=== PATIENT | female | born 1930 | race Caucasian/White ===

== ENCOUNTER 2016-04-12 14:53 | Emergency (ER) | payer MEDICARE ==
[2016-04-12 16:19] LABS: Hematocrit 40 % (35-47); Hemoglobin 13.2 g/dl (12.0-16.0); Mean Corpuscular HGB Conc 33 g/dl (31-36); Mean Corpuscular Hemoglobin 30 pg (27-31); Mean Corpuscular Volume 90 fL (80-97); Mean Platelet Volume 8 um3 (7.4-10.4); Red Blood Count 4.46 10^6/ul (4.0-5.4); Red Cell Distribution Width 14 % (10.5-15); White Blood Count 7.2 10^3/ul (3.5-10.8)
--- NOTE | 2016-04-12 16:21 | RAD ---
INDICATION: Midsternal chest pain for 5 minutes. Pain free for 20 minutes. Arrhythmia. COMPARISON: October 22, 2015 chest radiograph and August 01, [address] TECHNIQUE: Dual energy PA chest obtained. REPORT: Moderate retrocardiac hiatal hernia without change. Mild cardiomegaly. RIGHT atrial and RIGHT ventricular level pacemaker leads. LEFT chest wall pacemaker control device partially obscures the LEFT lung. No pulmonary infiltrate, focal pulmonary lesion, pleural effusion, or pneumothorax. IMPRESSION: No acute cardiopulmonary process evident.
[2016-04-12 16:35] LABS: BUN/Creatinine Ratio 19.7 (8-20); Calcium 9.8 mg/dL (8.6-10.3); EGFR African American 51.4 (>60); Potassium 3.7 mmol/L (3.5-5.0)
[2016-04-12 20:02] VITALS: BP 110/60
--- NOTE | 2016-04-12 20:08 | ED ---
Cullen Thorne Benjamin, scribed for Brando Byrne MD on 04/12/16 at 1524 . HPI Chest Pain - HPI Summary HPI Summary: 86yo female c/o sudden onset mid sternal chest pain around 1430, which lasted about couple of minutes. Pt states that pain moved slightly to the right side. Pt has a pacer placed, and is also on Warfarin. Pt denies neck pain, fever, cough, congestion, and didnt have any recent surgeries or stress test performed. No recent medication changes as well. Pts java analyst is Dr. Sy. - History of Current Complaint Chief Complaint: EDChestPainROMI Time Seen by Provider: 04/12/16 15:10 Hx Obtained From: Patient, Family/Service Delivery Management Consultant - daughter Onset/Duration: Started Minutes Ago - 40 minutes ago, Resolved Timing: Lasting Minutes - couple of minutes Initial Severity: Mild Current Severity: None Pain Intensity: 0 Pain Scale Used: 0-10 Numeric Chest Pain Location: Mid Sternal Chest Pain Radiates: No Aggravating Factor(s): Nothing Alleviating Factor(s): Spontaneous Resolution Associated Signs and Symptoms: Positive: Negative. Negative: Fever, Cough - Additional Pertinent History Primary Care Physician: [id number] - Allergy/Home Medications Allergies/Adverse Reactions: Allergies Allergy/AdvReac Type Severity Reaction Status Date / Time Sulfa Drugs Allergy Intermediate Hives Verified 04/12/16 15:00 Morphine Allergy Unknown Unknown Verified 04/12/16 15:00 Reaction Details Oxycodone Allergy Unknown Unknown Verified 04/12/16 15:00 Reaction Details Propoxyphene Allergy Unknown Unknown Verified 04/12/16 15:00 Reaction Details PMH/Surg Hx/FS Hx/Imm Hx Endocrine/Hematology History: Reports: Hx Anticoagulant Therapy - coumadin, Hx Thyroid Disease - hypo, Hx Anemia Denies: Hx Diabetes Cardiovascular History: Reports: Hx Coronary Artery Disease, Hx Deep Vein Thrombosis, Hx Hypertension, Hx Pacemaker/ICD, Other Cardiovascular Problems/ Disorders - heart block Denies: Hx Congestive Heart Failure Respiratory History: Reports: 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 pylori Denies: Hx Cirrhosis, Hx Crohn's Disease, Hx Diverticulosis, Hx Gall Bladder Disease, Hx Hiatal Hernia, Hx Irritable Bowel, Hx Jaundice, Hx Obstructive Bowel History: Reports: Other Problems/Disorders - UTI's, urgency incontinence Denies: Hx Dialysis, Hx Renal Disease Musculoskeletal History: Reports: Hx Arthritis, Hx Back Problems, Hx Scoliosis, Other Musculoskeletal History - DJD Sensory History: Reports: Hx Contacts or Glasses - readers only Denies: Hx Cataracts, Hx Eye Injury, Hx Eye Prosthesis, Hx Glaucoma, Hx Legally Blind, Hx Macular Degeneration, Hx Vision Problem, Hx Deafness, Hx Hearing Aid, Hx Hearing Problem, Other Sensory Impairments Opthamlomology History: Reports: Hx Contacts or Glasses - readers only Denies: Hx Cataracts, Hx Eye Injury, Hx Eye Prosthesis, Hx Glaucoma, Hx Legally Blind, Hx Macular Degeneration, Hx Vision Problem, Other Sensory Impairments Neurological History: Reports: Other Neuro Impairments/Disorders - as a teen, concussion with 45 min. loss of consciousness Denies: Hx Dementia, Hx Migraine, Hx Seizures Psychiatric History: Reports: Hx Anxiety, Hx Depression Denies: Hx Substance Abuse - Surgical History Surgery Procedure, Year, and Place: pacemaker insertion, hysterectomy, LTKA, RTHA, laparotomy, oopherectomy, open cholecystectomy, tonsilectomy, bladder sling, Hx Anesthesia Reactions: No Infectious Disease History: No Infectious Disease History: Denies: Hx Clostridium Difficile, Hx Hepatitis, Hx Human Immunodeficiency Virus (HIV), Hx of Known/Suspected MRSA, Hx Shingles, Hx Tuberculosis, Hx Known/ Suspected VRE, Hx Known/Suspected VRSA, History Other Infectious Disease, Traveled Outside the [place] in Last 30 Days - Family History Known Family History: Positive: Other - Hx breast CA in maternal grandmother - Social History Occupation: Retired Lives: With Family Alcohol Use: None Hx Substance Use: No Substance Use Type: Reports: None Hx Tobacco Use: No Smoking Status (MU): Never Smoked Tobacco Review of Systems Constitutional: Negative Negative: Fever Eyes: Negative ENT: Negative Positive: Chest Pain - mid sternal chest pain 40 minutes ago, now resolved Respiratory: Negative Negative: Cough Gastrointestinal: Negative Genitourinary: Negative Musculoskeletal: Negative Skin: Negative Neurological: Negative Psychological: Normal All Other Systems Reviewed And Are Negative: Yes Physical Exam Triage Information Reviewed: Yes Vital Signs On Initial Exam: Initial Vitals Temp Pulse Resp BP Pulse Ox 97.3 F 79 18 125/69 100 04/12/16 14:55 04/12/16 14:55 04/12/16 14:55 04/12/16 14:55 04/12/16 14:55 Vital Signs Reviewed: Yes Appearance: Positive: Well-Appearing, No Pain Distress, Well-Nourished Skin: Positive: Warm, Skin Color Reflects Adequate Perfusion, Dry Head/Face: Positive: Normal Head/Face Inspection ENT: Positive: Normal ENT inspection Neck: Positive: Supple, Nontender Respiratory/Lung Sounds: Positive: Clear to Auscultation, Breath Sounds Present Cardiovascular: Positive: Normal - left anterior chest pacemaker non tender, RRR Abdomen Description: Positive: Nontender, No Organomegaly, Soft Bowel Sounds: Positive: Present Musculoskeletal: Positive: Strength/ROM Intact Neurological: Positive: Normal, Sensory/Motor Intact, Alert, Oriented to Person Place, Time Psychiatric: Positive: Affect/Mood Appropriate Diagnostics - Vital Signs Vital Signs Temp Pulse Resp BP Pulse Ox 04/12/16 14:55 97.3 F 79 18 125/69 100 - Laboratory Lab Results: Lab Results 04/12/16 04/12/16 04/12/16 Range/Units 16:08 16:08 16:08 WBC 7.2 (3.5-10.8) 10^3/ul RBC 4.46 (4.0-5.4) 10^6/ul Hgb 13.2 (12.0-16.0) g/dl Hct 40 (35-47) % MCV 90 (80-97) fL MCH 30 (27-31) pg MCHC 33 (31-36) g/dl RDW 14 (10.5-15) % Plt Count 233 (150-450) 10^3/ul MPV 8 (7.4-10.4) um3 INR (Anticoag Therapy) 2.73 H (0.89-1.11) Sodium 136 (133-145) mmol/L Potassium 3.7 (3.5-5.0) mmol/L Chloride 100 L (101-111) mmol/L Carbon Dioxide 28 (22-32) mmol/L Anion Gap 8 (2-11) mmol/L BUN 25 H (6-24) mg/dL Creatinine 1.27 H (0.51-0.95) mg/dL Est GFR ( Amer) 51.4 (>60) Est GFR (Non-Af Amer) 40.0 (>60) BUN/Creatinine Ratio 19.7 (8-20) Glucose 99 (70-100) mg/dL Calcium 9.8 (8.6-10.3) mg/dL Troponin I 0.00 (<0.04) ng/mL 04/12/16 Range/Units 19:00 WBC (3.5-10.8) 10^3/ul RBC (4.0-5.4) 10^6/ul Hgb (12.0-16.0) g/dl Hct (35-47) % MCV (80-97) fL MCH (27-31) pg MCHC (31-36) g/dl RDW (10.5-15) % Plt Count (150-450) 10^3/ul MPV (7.4-10.4) um3 INR (Anticoag Therapy) (0.89-1.11) Sodium (133-145) mmol/L Potassium (3.5-5.0) mmol/L Chloride (101-111) mmol/L Carbon Dioxide (22-32) mmol/L Anion Gap (2-11) mmol/L BUN (6-24) mg/dL Creatinine (0.51-0.95) mg/dL Est GFR ( Amer) (>60) Est GFR (Non-Af Amer) (>60) BUN/Creatinine Ratio (8-20) Glucose (70-100) mg/dL Calcium (8.6-10.3) mg/dL Troponin I 0.01 (<0.04) ng/mL Result Diagrams: 04/12/16 16:08 04/12/16 16:08 Lab Statement: Any lab studies that have been ordered have been reviewed, and results considered in the medical decision making process. - Radiology CXR Xray Interpretation: No Acute Changes Radiology Interpretation Completed By: Radiologist - EKG 1500. Cardiac Rate: NL - 69bpm EKG Rhythm: Atrial Fibrillation - atrial paced regular rhythm. Ectopy: PACs - focal PACs Re-Evaluation - Re-Evaluation First Eval Re-Evaluation Time: 18:01 Comment: Discussed results and plan of care with patient. Patient is agreeable to plan. Chest Pain Course/Dx - Course Course Of Treatment: Dr. Cohen wants a repeat trop and EKG taken. Will also receive pt's chart from Jul, 2014 to review via fax from Dr. Sy's office. - Chest Pain Differential Diagnosis/HQI/PQRI: ACS, Angina, Pulmonary Embolism, Other: - Unclear cause for the minute long pain, but low concern for ischemic cause or PE. Discussion with family, patient, and cardiology and will ED rule out and DC to Cardiology FU as an outpaient. - Diagnoses Provider Diagnoses: Chest pain - Provider Notifications Discussed Care Of Patient With: Dr. Cohen (Cardiology) @2448. Discharge - Discharge Plan Condition: Stable Disposition: HOME Patient Education Materials: Chest Pain (ED) Referrals: Antonio Zacarias DO [Primary Care Provider] - 3 Days The documentation as recorded by the Cullen tyson Benjamin accurately reflects the service I personally performed and the decisions made by , Brando Byrne MD.
== END 2016-04-12 20:18 | disposition home or self-care (01) ==
LOC: ED 14:53
DX: R07.9 Chest pain, unspecified (principal)
CPT/HCPCS: 36415; 71020; 80048; 84484; 85027; 85610; 93005; 99283

== ENCOUNTER 2016-07-10 13:56 | Emergency (ER) | payer MEDICARE ==
--- NOTE | 2016-07-10 17:44 | RAD ---
HISTORY: Trauma, left hip pain COMPARISONS: None relevant available at the time of dictation VIEWS: 3, Frontal view of the pelvis with frontal and frog-leg views of the left hip FINDINGS: BONE DENSITY: There is diffuse osteopenia. BONES: The patient is status post right hip arthroplasty. 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 The patient is status post right hip arthroplasty. ALIGNMENT: There is no dislocation. SOFT TISSUES: Degenerative changes are noted of the spine OTHER FINDINGS: None. IMPRESSION: STATUS POST RIGHT HIP ARTHROPLASTY. NO RADIOGRAPHIC EVIDENCE FOR LEFT HIP FRACTURE. X-RAYS MAY BE NEGATIVE WITH NONDISPLACED HIP FRACTURE, IF THERE IS PERSISTENT CLINICAL CONCERN, RECOMMEND CONSIDERATION OF MRI. IN THE SETTING OF CONTRAINDICATION TO MRI OR LIMITATION IN EMERGENT ACCESS TO MRI, CT WOULD BE SUGGESTED.
--- NOTE | 2016-07-10 18:49 | RAD ---
HISTORY: Subacute trauma, left hip pain COMPARISONS: CT dated pelvis dated August 01, 2015 TECHNIQUE: Multiple contiguous axial CT images are obtained of the pelvis, with coronal and sagittal multiplanar reconstructions, without intravenous contrast administration. FINDINGS: BONE DENSITY: There is diffuse osteopenia. BONES: There is no displaced fracture. The patient is status post right hip arthroplasty. JOINTS: There is moderate osteoarthritis of the left hip and mild osteoarthritis of the SI joints bilaterally MUSCULATURE: There is fatty atrophy of the multifidus and erector spinae ALIGNMENT: There is no dislocation. SOFT TISSUES: Unremarkable. OTHER FINDINGS: None. IMPRESSION: 1. OSTEOPENIA. 2. STATUS POST RIGHT HIP ARTHROPLASTY. 3. NO ACUTE OSSEOUS INJURY. DEGREE OF OSTEOPENIA MAY MAKE A NONDISPLACED FRACTURE RADIOGRAPHICALLY OCCULT IF THERE IS PERSISTENT CLINICAL CONCERN FOR FRACTURE, MRI AND/OR THREE-PHASE BONE SCAN OF THE AREA OF CONCERN MAY BE MORE SENSITIVE.
[2016-07-10 19:34] VITALS: BP 123/66
--- NOTE | 2016-07-10 22:42 | ED ---
Cullen Thorne Benjamin, scribed for Marlon Mahoney MD on 07/10/16 at 1712 . Lower Extremity - HPI Summary HPI Summary: 86yo female who fell off the kitchen ladder 10 days ago, upon getting dizzy whe nthe pt looked down. Pt fell on her left side and started having pain in her left hip. Pt came in as her pain is getting worse. Pain worsens with pt moves her left leg. Pt denies any back pain. - History of Current Complaint Chief Complaint: EDExtremityLower Stated Complaint: FALL/LT LEG INJURY Time Seen by Provider: 07/10/16 16:49 Hx Obtained From: Patient Pain Intensity: 0 - Allergies/Home Medications Allergies/Adverse Reactions: Allergies Allergy/AdvReac Type Severity Reaction Status Date / Time Sulfa Drugs Allergy Intermediate Hives Verified 04/12/16 15:00 Morphine Allergy Unknown Unknown Verified 04/12/16 15:00 Reaction Details Oxycodone Allergy Unknown Unknown Verified 04/12/16 15:00 Reaction Details Propoxyphene Allergy Unknown Unknown Verified 04/12/16 15:00 Reaction Details PMH/Surg Hx/FS Hx/Imm Hx Endocrine/Hematology History: Reports: Hx Anticoagulant Therapy - coumadin, Hx Thyroid Disease - hypo, Hx Anemia Denies: Hx Diabetes Cardiovascular History: Reports: Hx Coronary Artery Disease, Hx Deep Vein Thrombosis, Hx Hypertension, Hx Pacemaker/ICD, Other Cardiovascular Problems/ Disorders - heart block Denies: Hx Congestive Heart Failure Respiratory History: Reports: 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 pylori Denies: Hx Cirrhosis, Hx Crohn's Disease, Hx Diverticulosis, Hx Gall Bladder Disease, Hx Hiatal Hernia, Hx Irritable Bowel, Hx Jaundice, Hx Obstructive Bowel History: Reports: Other Problems/Disorders - UTI's, urgency incontinence Denies: Hx Dialysis, Hx Renal Disease Musculoskeletal History: Reports: Hx Arthritis, Hx Back Problems, Hx Scoliosis, Other Musculoskeletal History - DJD Sensory History: Reports: Hx Contacts or Glasses - readers only Denies: Hx Cataracts, Hx Eye Injury, Hx Eye Prosthesis, Hx Glaucoma, Hx Legally Blind, Hx Macular Degeneration, Hx Vision Problem, Hx Deafness, Hx Hearing Aid, Hx Hearing Problem, Other Sensory Impairments Opthamlomology History: Reports: Hx Contacts or Glasses - readers only Denies: Hx Cataracts, Hx Eye Injury, Hx Eye Prosthesis, Hx Glaucoma, Hx Legally Blind, Hx Macular Degeneration, Hx Vision Problem, Other Sensory Impairments Neurological History: Reports: Other Neuro Impairments/Disorders - as a teen, concussion with 45 min. loss of consciousness Denies: Hx Dementia, Hx Migraine, Hx Seizures Psychiatric History: Reports: Hx Anxiety, Hx Depression Denies: Hx Substance Abuse - Surgical History Surgery Procedure, Year, and Place: pacemaker insertion, hysterectomy, LTKA, RTHA, laparotomy, oopherectomy, open cholecystectomy, tonsilectomy, bladder sling, Hx Anesthesia Reactions: No Infectious Disease History: No Infectious Disease History: Denies: Hx Clostridium Difficile, Hx Hepatitis, Hx Human Immunodeficiency Virus (HIV), Hx of Known/Suspected MRSA, Hx Shingles, Hx Tuberculosis, Hx Known/ Suspected VRE, Hx Known/Suspected VRSA, History Other Infectious Disease, Traveled Outside the [place] in Last 30 Days - Family History Known Family History: Positive: Other - Hx breast CA in maternal grandmother - Social History Alcohol Use: None Hx Substance Use: No Substance Use Type: Reports: None Hx Tobacco Use: No Smoking Status (MU): Never Smoked Tobacco Review of Systems All Other Systems Reviewed And Are Negative: Yes Physical Exam Triage Information Reviewed: Yes Vital Signs On Initial Exam: Initial Vitals Temp Pulse Resp BP Pulse Ox 97.0 F 80 20 114/77 96 07/10/16 14:00 07/10/16 14:00 07/10/16 14:00 07/10/16 14:00 07/10/16 14:00 Vital Signs Reviewed: Yes Appearance: Positive: Well-Appearing, Well-Nourished, Pain Distress - moderate Skin: Positive: Warm, Skin Color Reflects Adequate Perfusion, Dry Head/Face: Positive: Normal Head/Face Inspection Eyes: Positive: Normal, EOMI, DOMINIQUE ENT: Positive: Normal ENT inspection Neck: Positive: Supple, Nontender Respiratory/Lung Sounds: Positive: Clear to Auscultation, Breath Sounds Present Cardiovascular: Positive: RRR Abdomen Description: Positive: Nontender, No Organomegaly Bowel Sounds: Positive: Present Musculoskeletal: Positive: Pain @ - left hip. No tenderness in sciatic or lumbar area. Neurological: Positive: Normal, Sensory/Motor Intact, Alert, Oriented to Person Place, Time, CN Intact II-III Psychiatric: Positive: Affect/Mood Appropriate Diagnostics - Vital Signs Vital Signs Temp Pulse Resp BP Pulse Ox 07/10/16 14:03 97.2 F 77 20 114/77 97 07/10/16 14:00 97.0 F 80 20 114/77 96 - Laboratory Lab Statement: Any lab studies that have been ordered have been reviewed, and results considered in the medical decision making process. - Radiology CXR Xray Interpretation: Positive (See Comments) - IMPRESSION: STATUS POST RIGHT HIP ARTHROPLASTY. NO RADIOGRAPHIC EVIDENCE FOR LEFT HIP FRACTURE. X-RAYS MAY BE NEGATIVE WITH NONDISPLACED HIP FRACTURE, IF THERE IS PERSISTENT CLINICAL CONCERN, RECOMMEND CONSIDERATION OF MRI. IN THE SETTING OF CONTRAINDICATION TO MRI OR LIMITATION IN EMERGENT ACCESS TO MRI, CT WOULD BE SUGGESTED. Radiology Interpretation Completed By: Radiologist - CT CT Pelvis CT Interpretation: Positive (See Comments) CT Interpretation Completed By: Radiologist - EKG 1452. Cardiac Rate: NL EKG Rhythm: Sinus Rhythm ST Segment: Normal EKG Comparison: No Significant Change - compared to 04/12/16 Lower Extremity Course/Dx - Course Course Of Treatment: Ms. Wilson fell and hurt her left hip about 10 days ago and it's not getting better. She was quite tender to any ROM at the right hip. Imaging including CT scan was unrevealing. I will continue symptomatic treatment. - Diagnoses Provider Diagnoses: Injury of hip, left Discharge - Discharge Plan Condition: Stable Disposition: HOME Patient Education Materials: Hip Sprain (ED) Referrals: Antonio Zacarias DO [Primary Care Provider] - 1 Day The documentation as recorded by the Cullen tyson Benjamin accurately reflects the service I personally performed and the decisions made by me, Marlon Mahoney MD.
== END 2016-07-10 19:34 | disposition home or self-care (01) ==
LOC: ED 13:56
DX: S79.912A Unspecified injury of left hip, initial encounter (principal); W11.XXXA Fall on and from ladder, initial encounter; Y92.009 Unspecified place in unspecified non-institutional (private) residence as the place of occurrence of the external cause; E03.9 Hypothyroidism, unspecified; D64.9 Anemia, unspecified; I25.10 Atherosclerotic heart disease of native coronary artery without angina pectoris; I10 Essential (primary) hypertension; Z95.810 Presence of automatic (implantable) cardiac defibrillator; Z86.711 Personal history of pulmonary embolism; Z79.01 Long term (current) use of anticoagulants; Z86.718 Personal history of other venous thrombosis and embolism
CPT/HCPCS: 72192; 93005; 99282

== ENCOUNTER 2016-07-21 17:02 | Emergency (ER) | payer MEDICARE ==
--- NOTE | 2016-07-21 21:14 | RAD ---
Indication: Left hip pain, difficulty with ambulation. CT of the pelvis was obtained in the axial plane. Sagittal and coronal reconstructed images were obtained. Comparison is made with previous exam dated July 10, 2016. Patient is status post right hip replacement. Pelvic ring is intact. No evidence of fracture of the pelvis is noted. The left femoral head and neck demonstrates no evidence of fracture. There is joint space narrowing in the superior aspect of the hip joint with subchondral eburnation. Subchondral cyst formation is noted. Osteophyte formation is noted. No evidence of intertrochanteric fracture is noted. IMPRESSION: Degenerative changes of the left hip is noted. No fracture is identified. Sacrum and sacroiliac joints are unremarkable.
--- NOTE | 2016-07-21 21:20 | RAD ---
Indication: Left knee pain. 5 views of the left knee demonstrates bipolar knee arthroplasty in satisfactory position. IMPRESSION: Left knee arthroplasty in satisfactory position without evidence of fracture.
--- NOTE | 2016-07-21 22:21 | ED ---
Lower Extremity - HPI Summary HPI Summary: 86F presents with fall two weeks ago causing left groin pain. She states she has no pain at rest or when sitting but when attempts to place weight on foot has extreme pain. She is taking Tylenol for pain. She is following up with dr oconnor for her pain. She states during the initially injury she feel off a step stool and landed on her left hip and knee. She states her left knee also hurts her. She gets around at home with a walker. She had a left knee replacement years ago. She is on blood thinners. - History of Current Complaint Chief Complaint: EDHipPelvisInjury Stated Complaint: FALL/POSS HIP FX Time Seen by Provider: 07/21/16 21:48 Pain Intensity: 10 - Allergies/Home Medications Allergies/Adverse Reactions: Allergies Allergy/AdvReac Type Severity Reaction Status Date / Time Sulfa Drugs Allergy Intermediate Hives Verified 04/12/16 15:00 Morphine Allergy Unknown Unknown Verified 04/12/16 15:00 Reaction Details Oxycodone Allergy Unknown Unknown Verified 04/12/16 15:00 Reaction Details Propoxyphene Allergy Unknown Unknown Verified 04/12/16 15:00 Reaction Details PMH/Surg Hx/FS Hx/Imm Hx Endocrine/Hematology History: Reports: Hx Anticoagulant Therapy - coumadin, Hx Thyroid Disease - hypo, Hx Anemia Denies: Hx Diabetes Cardiovascular History: Reports: Hx Coronary Artery Disease, Hx Deep Vein Thrombosis, Hx Hypertension, Hx Pacemaker/ICD, Other Cardiovascular Problems/ Disorders - heart block Denies: Hx Congestive Heart Failure Respiratory History: Reports: 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 pylori Denies: Hx Cirrhosis, Hx Crohn's Disease, Hx Diverticulosis, Hx Gall Bladder Disease, Hx Hiatal Hernia, Hx Irritable Bowel, Hx Jaundice, Hx Obstructive Bowel History: Reports: Other Problems/Disorders - UTI's, urgency incontinence Denies: Hx Dialysis, Hx Renal Disease Musculoskeletal History: Reports: Hx Arthritis, Hx Back Problems, Hx Scoliosis, Other Musculoskeletal History - DJD Sensory History: Reports: Hx Contacts or Glasses - readers only Denies: Hx Cataracts, Hx Eye Injury, Hx Eye Prosthesis, Hx Glaucoma, Hx Legally Blind, Hx Macular Degeneration, Hx Vision Problem, Hx Deafness, Hx Hearing Aid, Hx Hearing Problem, Other Sensory Impairments Opthamlomology History: Reports: Hx Contacts or Glasses - readers only Denies: Hx Cataracts, Hx Eye Injury, Hx Eye Prosthesis, Hx Glaucoma, Hx Legally Blind, Hx Macular Degeneration, Hx Vision Problem, Other Sensory Impairments Neurological History: Reports: Other Neuro Impairments/Disorders - as a teen, concussion with 45 min. loss of consciousness Denies: Hx Dementia, Hx Migraine, Hx Seizures Psychiatric History: Reports: Hx Anxiety, Hx Depression Denies: Hx Substance Abuse - Surgical History Surgery Procedure, Year, and Place: pacemaker insertion, hysterectomy, LTKA, RTHA, laparotomy, oopherectomy, open cholecystectomy, tonsilectomy, bladder sling, Hx Anesthesia Reactions: No Infectious Disease History: No Infectious Disease History: Denies: Hx Clostridium Difficile, Hx Hepatitis, Hx Human Immunodeficiency Virus (HIV), Hx of Known/Suspected MRSA, Hx Shingles, Hx Tuberculosis, Hx Known/ Suspected VRE, Hx Known/Suspected VRSA, History Other Infectious Disease, Traveled Outside the [place] in Last 30 Days - Family History Known Family History: Positive: Other - Hx breast CA in maternal grandmother - Social History Alcohol Use: None Hx Substance Use: No Substance Use Type: Reports: None Hx Tobacco Use: No Smoking Status (MU): Never Smoked Tobacco Review of Systems Negative: Fever Negative: Chest Pain Negative: Shortness Of Breath Positive: Myalgia - left hip pain All Other Systems Reviewed And Are Negative: Yes Physical Exam Triage Information Reviewed: Yes Vital Signs On Initial Exam: Initial Vitals Temp Pulse Resp BP Pulse Ox 97.8 F 73 18 126/56 94 07/21/16 17:20 07/21/16 17:20 07/21/16 17:20 07/21/16 17:20 07/21/16 17:20 Vital Signs Reviewed: Yes Appearance: Positive: Well-Appearing Skin: Positive: Warm, Dry Head/Face: Positive: Normal Head/Face Inspection Eyes: Positive: Normal, Conjunctiva Clear Respiratory/Lung Sounds: Positive: Clear to Auscultation, Breath Sounds Present Cardiovascular: Positive: Normal, RRR Musculoskeletal: Positive: Strength/ROM Intact - full ROM of left knee, Limited @ - left hip due to pain, Other - good pulses, Diagnostics - Vital Signs Vital Signs Temp Pulse Resp BP Pulse Ox 07/21/16 21:54 97.9 F 72 16 111/60 97 07/21/16 18:36 97.9 F 72 16 111/60 97 07/21/16 17:20 97.8 F 73 18 126/56 94 - Laboratory Lab Statement: Any lab studies that have been ordered have been reviewed, and results considered in the medical decision making process. - Radiology knee Xray Interpretation: No Acute Changes - IMPRESSION: Left knee arthroplasty in satisfactory position without evidence of fracture. Radiology Interpretation Completed By: Radiologist - CT pelvis CT Interpretation: No Acute Changes - IMPRESSION: Degenerative changes of the left hip is noted. No fracture is identified. Sacrum and sacroiliac joints are unremarkable. CT Interpretation Completed By: Radiologist Lower Extremity Course/Dx - Course Course Of Treatment: 86F presents for repeat CT for hip s/p fall 2 weeks ago. states only has pain with ambulation which uses walker for. pain is in left hip. patient can not have MRI due to pacer. limited ROM with pain left hip. CT hip normal. told to follow up with ortho, patient understands and agrees with plan - Diagnoses Differential Diagnosis/HQI/PQRI: Positive: Fracture (Closed), Sprain, Strain Provider Diagnoses: Left hip pain Discharge - Discharge Plan Condition: Good Disposition: HOME Patient Education Materials: Hip Pain (ED) Referrals: Antonio Zacarias DO [Primary Care Provider] - Mathieu Oconnor MD [Medical Doctor] - Additional Instructions: Take Tylenol every 6-8 hours for pain Ice area Follow up with ortho Return to ED if develop any new or worsening symptoms
[2016-07-21 22:34] VITALS: BP 165/88
== END 2016-07-21 22:33 | disposition home or self-care (01) ==
LOC: ED 17:02
DX: I26.99 Other pulmonary embolism without acute cor pulmonale (principal); R05 Cough; R06.02 Shortness of breath; R07.9 Chest pain, unspecified
CPT/HCPCS: 72192; 99284

== ENCOUNTER 2016-10-13 20:41 | Observation (INO) | payer MEDICARE ==
[2016-10-13] MEDS ORDERED: NS 0.9% 1000 ML* 1,000 ML IV ONE (21:27)
[2016-10-13 21:52] LABS: Hematocrit 39 % (35-47); Hemoglobin 12.6 g/dl (12.0-16.0); Mean Corpuscular HGB Conc 33 g/dl (31-36); Mean Corpuscular Hemoglobin 30 pg (27-31); Mean Corpuscular Volume 91 fL (80-97); Mean Platelet Volume 9 um3 (7.4-10.4); Red Blood Count 4.26 10^6/ul (4.0-5.4); Red Cell Distribution Width 15 % (10.5-15); White Blood Count 6.7 10^3/ul (3.5-10.8)
[2016-10-13 22:07] LABS: Albumin 3.7 g/dL (3.2-5.2); BUN/Creatinine Ratio 16.4 (8-20); C Reactive Protein 15.68 mg/L (< 5.00); Calcium 9.1 mg/dL (8.6-10.3); EGFR Non-African American 39.6 (>60); Globulin 2.7 g/dL (2-4); Magnesium 1.9 mg/dL (1.9-2.7); Potassium 3.7 mmol/L (3.5-5.0); Total Bilirubin 0.4 mg/dL (0.2-1.0); Total Protein 6.4 g/dL (6.4-8.9)
--- NOTE | 2016-10-13 22:40 | ED ---
Christianne Thorne SooYoung, scribed for Hai Potter MD on 10/13/16 at 2125 . GI/ HPI - HPI Summary HPI Summary: An 86 y/o F presents to ED with c/o melena onset this AM. Pt took a laxative last night for constipation, and she states she had a good, large BM this AM but noticed blood in the toilet. No other BMs today. Her family contacted Dr. Quinn, who recommended she come to ED for evaluation. Her INR at home today was 4.4. PMHx: hiatal hernia, GI bleed, afib. Pt is on Coumadin. - History of Current Complaint Chief Complaint: EDGIBleed Time Seen by Provider: 10/13/16 21:21 Stated Complaint: POSSIBLE GI BLEED Hx Obtained From: Patient, Family/[employer] Supervisor Onset/Duration: Started Hours Ago Pain Intensity: 0 - out of 10 Associated Signs and Symptoms: Positive: Blood w/Stool - Additional Pertinent History Primary Care Physician: KAPIL - Allergy/Home Medications Allergies/Adverse Reactions: Allergies Allergy/AdvReac Type Severity Reaction Status Date / Time Sulfa Drugs Allergy Intermediate Hives Verified 04/12/16 15:00 Morphine Allergy Unknown Unknown Verified 04/12/16 15:00 Reaction Details Oxycodone Allergy Unknown Unknown Verified 04/12/16 15:00 Reaction Details Propoxyphene Allergy Unknown Unknown Verified 04/12/16 15:00 Reaction Details Home Medications: Home Medications Amlodipine Besylate [Norvasc 5 mg tab] 5 mg PO DAILY 10/13/16 [History Confirmed 10/13/16] Ferrous Sulfate [Fe Tabs] 325 mg PO DAILY 10/13/16 [History Confirmed 10/13/16] Furosemide TAB* [Lasix TAB*] 40 mg PO DAILY 10/13/16 [History Confirmed 10/13/16 ] Senna TAB* [Senokot TAB*] 1 tab PO BEDTIME 10/13/16 [History Confirmed 10/13/16] Spironolactone [Aldactone 25 MG-] 25 mg PO DAILY 10/13/16 [History Confirmed 10/22] PMH/Surg Hx/FS Hx/Imm Hx Previously Healthy: No Endocrine/Hematology History: Reports: Hx Anticoagulant Therapy - coumadin, Hx Thyroid Disease - hypo, Hx Anemia Denies: Hx Diabetes Cardiovascular History: Reports: Hx Coronary Artery Disease, Hx Deep Vein Thrombosis, Hx Hypertension, Hx Pacemaker/ICD, Other Cardiovascular Problems/ Disorders - heart block Denies: Hx Congestive Heart Failure Respiratory History: Reports: 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 pylori Denies: Hx Cirrhosis, Hx Crohn's Disease, Hx Diverticulosis, Hx Gall Bladder Disease, Hx Hiatal Hernia, Hx Irritable Bowel, Hx Jaundice, Hx Obstructive Bowel History: Reports: Other Problems/Disorders - UTI's, urgency incontinence Denies: Hx Dialysis, Hx Renal Disease Musculoskeletal History: Reports: Hx Arthritis, Hx Back Problems, Hx Scoliosis, Other Musculoskeletal History - DJD Sensory History: Reports: Hx Contacts or Glasses - readers only Denies: Hx Cataracts, Hx Eye Injury, Hx Eye Prosthesis, Hx Glaucoma, Hx Legally Blind, Hx Macular Degeneration, Hx Vision Problem, Hx Deafness, Hx Hearing Aid, Hx Hearing Problem, Other Sensory Impairments Opthamlomology History: Reports: Hx Contacts or Glasses - readers only Denies: Hx Cataracts, Hx Eye Injury, Hx Eye Prosthesis, Hx Glaucoma, Hx Legally Blind, Hx Macular Degeneration, Hx Vision Problem, Other Sensory Impairments Neurological History: Reports: Other Neuro Impairments/Disorders - as a teen, concussion with 45 min. loss of consciousness Denies: Hx Dementia, Hx Migraine, Hx Seizures Psychiatric History: Reports: Hx Anxiety, Hx Depression Denies: Hx Substance Abuse - Surgical History Surgery Procedure, Year, and Place: pacemaker insertion, hysterectomy, LTKA, RTHA, laparotomy, oopherectomy, open cholecystectomy, tonsilectomy, bladder sling, Hx Anesthesia Reactions: No Infectious Disease History: Denies: Hx Clostridium Difficile, Hx Hepatitis, Hx Human Immunodeficiency Virus (HIV), Hx of Known/Suspected MRSA, Hx Shingles, Hx Tuberculosis, Hx Known/ Suspected VRE, Hx Known/Suspected VRSA, History Other Infectious Disease, Traveled Outside the [place] in Last 30 Days - Family History Known Family History: Positive: Other - Hx breast CA in maternal grandmother - Social History Occupation: Retired Lives: Alone Alcohol Use: None Hx Substance Use: No Substance Use Type: Reports: None Hx Tobacco Use: No Smoking Status (MU): Never Smoked Tobacco Review of Systems Negative: Fever Positive: Other - pos: melena, constipation All Other Systems Reviewed And Are Negative: Yes Physical Exam Triage Information Reviewed: Yes Vital Signs On Initial Exam: Initial Vitals Temp Pulse Resp BP Pulse Ox 98.2 F 79 20 125/62 94 10/13/16 20:44 10/13/16 20:44 10/13/16 20:44 10/13/16 20:44 10/13/16 20:44 Vital Signs Reviewed: Yes Appearance: Positive: No Pain Distress, Thin Skin: Positive: Warm Head/Face: Positive: Normal Head/Face Inspection Eyes: Positive: DOMINIQUE ENT: Positive: Hearing grossly normal Neck: Positive: Supple Respiratory/Lung Sounds: Positive: Clear to Auscultation, Breath Sounds Present Cardiovascular: Positive: IRR Abdomen Description: Positive: Nontender, Soft Bowel Sounds: Positive: Present Musculoskeletal: Positive: Strength/ROM Intact Neurological: Positive: Alert, Oriented to Person Place, Time Psychiatric: Positive: Affect/Mood Appropriate Diagnostics - Vital Signs Vital Signs Temp Pulse Resp BP Pulse Ox 10/13/16 20:44 98.2 F 79 20 125/62 94 - Laboratory Result Diagrams: 10/13/16 21:35 10/13/16 21:35 Lab Statement: Any lab studies that have been ordered have been reviewed, and results considered in the medical decision making process. - EKG 2331 Cardiac Rate: Other Rate - Paced rhythm GIGU Course/Dx - Course Course Of Treatment: Pt is an 86 y/o F presenting with c/o melena onset this AM. Pt took a laxative last night, and she states she had a good BM this AM but noticed blood in the toilet. No other BMs today. Her family contacted Dr. Quinn , who recommended she come to ED for evaluation. Her INR at home today was 4.4. PMHx: hiatal hernia, GI bleed, afib. Pt is on Coumadin. Blood work and lab results are without significant abnormalities except CRP is 15.68. INR is 3.43. EKG is paced. - Diagnoses Provider Diagnoses: GI bleed - Physician Notifications Discussed Care Of Patient With: Bere Cooley - hospitalist Time Discussed With Above Provider: 23:09 Instructed by Provider To: Admit As Inpatient Discharge - Discharge Plan Condition: Stable Disposition: ADMITTED TO [facility] The documentation as recorded by the Christianne tyson SooYoung accurately reflects the service I personally performed and the decisions made by me, Hai Potter MD.
[2016-10-13] MEDS ORDERED: Acetaminophen TAB* 325 MG PO PRN (23:46)
[2016-10-13] MEDS ORDERED: Docusate CAP* 100 MG PO PRN (23:46)
[2016-10-13] MEDS ORDERED: Ondansetron INJ* 2 MG/ML VIAL IV PRN (23:46)
[2016-10-13] MEDS ORDERED: Senna TAB PO PRN (23:46)
[2016-10-13] MEDS ORDERED: Al Hydrox/Mg Hydrox/Simet LIQ* 30 ML UDC PO PRN (23:46)
[2016-10-13] MEDS ORDERED: ALPRAZolam TAB* 0.5 MG PO PRN (23:48)
--- NOTE | 2016-10-14 01:37 | HP ---
CC: Antonio Zacarias DO * HISTORY AND PHYSICAL: DATE OF ADMISSION: 10/13/16 TIME OF EVALUATION: 2300. PRIMARY CARE PHYSICIAN: Antonio Zacarias DO CHIEF COMPLAINT: Bight red blood per rectum. HISTORY OF PRESENT ILLNESS: This is an 86-year-old female with a past medical history of GI bleed and atrial fibrillation, on anticoagulation who presented to the emergency room after having 1 episode of bright red blood per rectum. The patient says this morning, she had issues with constipation, took a laxative , had a large bowel movement, and then had noted a large amount of bright red blood rectum in the toilet. She did not come in until later today because her daughters made her come in. She denies being lightheaded, dizzy. No shortness of breath. No chest pain. She does feel tired. She states she has had longstanding issues with constipation, otherwise no changes in her bowels. She has had a slight gain in her weight. No recent colonoscopy. Denies any rectal pain or known hemorrhoids. Otherwise, remainder of review of systems is negative. In the emergency room, the patient had labs. Given a liter of normal saline and was referred to the hospitalist service for further evaluation. PAST MEDICAL HISTORY: 1. Atrial fibrillation, on anticoagulation, followed by Dr. Soler. 2. History of pacemaker placement. 3. Hypertension. 4. History of irritable bowel syndrome, predominantly constipation. 5. Anxiety. 6. Hypothyroidism. 7. Chronic back pain. 8. Osteoarthritis. 9. History of a PE. 10. History of obstructive sleep apnea. 11. History of diverticular disease, last colonoscopy in 2014. 12. History of chronic iron deficiency anemia. 13. GI bleed back in July 2015. 14. History of gastritis. PAST SURGICAL HISTORY: Hysterectomy, partial oophorectomy. MEDICATIONS: 1. Synthroid 75 mcg p.o. daily. 2. Senna 1 tab p.o. at bedtime. 3. Ferrous sulfate 325 mg p.o. daily. 4. Spironolactone 25 mg p.o. daily. 5. Amlodipine 5 mg p.o. daily. 6. Xanax 1 mg at bedtime as needed. 7. Wellbutrin XL 300 mg p.o. daily. 8. Tylenol 650 mg p.o. b.i.d. 9. Lasix 40 mg daily. 10. Lexapro 10 mg daily. 11. Metoprolol succinate XL 50 mg at bedtime. 12. Multivitamin. 13. Lyrica 75 mg p.o. t.i.d. 14. Pantoprazole 40 mg daily. 15. Coumadin takes 2.5 mg 5 times a week and one and a half tabs twice a week. ALLERGIES: SULFA DRUGS, MORPHINE, OXYCODONE, PROPOXYPHENE. FAMILY HISTORY: Reviewed and noncontributory. SOCIAL HISTORY: The patient lives alone. She is a farm . She has 5 children, who live close by, 5 daughters and 1 son. Her primary healthcare proxy is her daughter, Elizabeth. We discussed her MOLST form. She initially was a DNR/DNI, but now she states she is fearing of dying, wants to be a full code. We discussed following up with her primary care physician regarding this and remote smoking history. No alcohol use. REVIEW OF SYSTEMS: A 14-point review of systems, pertinent positives and negatives as mentioned in the HPI, otherwise negative. PHYSICAL EXAMINATION GENERAL: In no acute distress, resting comfortably with her daughter at the bedside. VITAL SIGNS: Temp 97.9, pulse rate 65, respiratory rate 17, oxygen saturation 93 % on room air, blood pressure 127/58. HEENT: Head, normocephalic. Eyes, pupils are equal and reactive, anicteric. No conjunctival pallor. Oropharynx, mucous membranes are moist. No erythema, no exudates. NECK: Supple. No lymphadenopathy. RESPIRATORY: Diminished breath sounds. No wheezes, rhonchi, or rales. CARDIAC: Regular rate and rhythm. Soft systolic murmur heard throughout. ABDOMEN: Morbidly obese, soft, nontender. EXTREMITIES: No clubbing, cyanosis, or edema. +1 DP. : No obvious hemorrhoids seen on physical exam. NEUROLOGIC: Alert and oriented x3. No focal neurologic deficits. LABORATORY DATA: White count 6.7, hemoglobin 12.6, hematocrit 39, platelets 222. INR is 3.43, sodium 141, potassium 3.7, chloride 105, bicarb 32, BUN 21, creatinine 1.28, CRP is 15.68. ASSESSMENT: This is an 86-year-old female with past medical history of atrial fibrillation, on anticoagulation; history of GI bleed, who presents to emergency room with 1 episode of bright red blood per rectum, followed by a bowel movement, is noted to be slightly supratherapeutic on her Coumadin. GI bleed. Assessment: This appears to be lower GI bleed, 1 episode of bright red blood per rectum. She is otherwise asymptomatic. Has some mild fatigue. No external hemorrhoids on exam, could be an internal hemorrhoid irritated by constipation, diverticular bleed, but only had 1 episode. Plan: We will admit her for observation, repeat her H and H in the morning unless she becomes more symptomatic, has more bloody stool episodes during the evening and hold her Coumadin as well depending on what her H and H is though the patient may need to be off Coumadin in the interim until further evaluation. CHRONIC MEDICAL PROBLEMS: 1. We will resume her medications as prescribed with the exception of Coumadin as mentioned above. 2. At the end, placed the patient on a heart healthy diet. 3. DVT prophylaxis. The patient scores high risk, placed her on sequential compression devices. She is also supratherapeutic. 4. Code status, full code. PATIENT TIME: Greater than 60 minutes were spent doing the history and physical , more than half the time was spent in direct patient contact. [id number]/CPS #: [id number] SHEELA
[2016-10-14 04:22] LABS: Urine Bacteria 1+ (Absent); Urine Bilirubin Negative (Negative); Urine Glucose Negative (Negative); Urine Nitrite Positive (Negative)
[2016-10-14] MEDS ORDERED: Levothyroxine TAB* 75 MCG TAB PO SCH (06:00)
[2016-10-14] MEDS ORDERED: Omeprazole CAP* 20 MG PO SCH (06:00)
[2016-10-14 06:01] LABS: Hematocrit 36 % (35-47); Hemoglobin 11.9 g/dl (12.0-16.0); Mean Corpuscular HGB Conc 33 g/dl (31-36); Mean Corpuscular Hemoglobin 30 pg (27-31); Mean Corpuscular Volume 91 fL (80-97); Mean Platelet Volume 9 um3 (7.4-10.4); Red Blood Count 3.97 10^6/ul (4.0-5.4); Red Cell Distribution Width 15 % (10.5-15)
[2016-10-14 06:24] LABS: BUN/Creatinine Ratio 19.8 (8-20); Calcium 8.5 mg/dL (8.6-10.3); EGFR Non-African American 55.2 (>60); Potassium 3.5 mmol/L (3.5-5.0)
[2016-10-14] MEDS ORDERED: Spironolactone TAB* 25 MG PO SCH (09:00)
[2016-10-14] MEDS ORDERED: Pregabalin CAP(*) 25 MG PO SCH (09:00)
[2016-10-14] MEDS ORDERED: amLODIPine TAB* 5 MG PO SCH (09:00)
[2016-10-14] MEDS ORDERED: Furosemide TAB* 20 MG PO SCH (09:00)
[2016-10-14] MEDS ORDERED: Ferrous Sulfate TAB* 325 MG PO SCH (09:00)
[2016-10-14] MEDS ORDERED: BuPROPion XL* 300 MG TAB.XL PO SCH (09:00)
[2016-10-14] MEDS ORDERED: Citalopram TAB* 20 MG PO SCH (09:00)
--- NOTE | 2016-10-14 11:18 | DCNOTE ---
Patient seen this morning. Feels well, no further bleeding episodes. On exam, RRR, s1 and s2 present, no m/g/r, lungs CTA B/L, no w/r/r, abd soft, NTND, BS+, no LE edema LGIB seems to have resolved, likely due to supratherapeutic INR and possible internal hemorrhoids. Hb only down slightly. Will hold coumadin again tonight, has home INR monitoring, will be in touch with outpatient coumadin management through Cardiology. Continue iron supplementation. F/U with PCP.
[2016-10-14 12:40] VITALS: BP 129/52
[2016-10-14] MEDS ORDERED: Metoprolol Succinate XL TAB* 50 MG PO SCH (21:00)
--- NOTE | 2016-10-14 23:45 | DS ---
CC: Dr. Antonio Zacarias * DISCHARGE SUMMARY: DATE OF ADMISSION: 10/13/16 DATE OF DISCHARGE: 10/14/16 PRIMARY CARE PHYSICIAN: Dr. Antonio Zacarias. PRINCIPAL DISCHARGE DIAGNOSIS: Bright red blood per rectum x1. SECONDARY DIAGNOSES: 1. History of atrial fibrillation, on Coumadin. 2. Hypertension. 3. Irritable bowel syndrome. 4. Anxiety. 5. Hypothyroidism. 6. Chronic back pain. 7. Osteoarthritis. 8. History of pulmonary embolism. 9. Obstructive sleep apnea. 10. Chronic iron-deficiency anemia. 11. History of upper GI bleed. DISCHARGE MEDICATION REGIMEN: 1. Colace 100 mg by mouth 2 times daily as needed for constipation. 2. Coumadin as instructed as an outpatient, currently on hold for tonight, can resume tomorrow. 3. Protonix 40 mg by mouth daily. 4. Lyrica 75 mg by mouth 3 times a day. 5. Multivitamin 1 tablet by mouth daily. 6. Toprol XL 50 mg by mouth at bedtime. 7. Lexapro 10 mg by mouth daily. 8. Lasix 40 mg by mouth daily. 9. Tylenol 650 mg by mouth 3 times daily. 10. Bupropion 300 mg by mouth daily. 11. Xanax 1 mg by mouth at bedtime as needed for anxiety. 12. Norvasc 5 mg by mouth daily. 13. Spironolactone 25 mg by mouth daily. 14. Ferrous sulfate 325 mg by mouth daily. 15. Senokot 1 tablet by mouth at bedtime. 16. Synthroid 75 mcg by mouth daily. HISTORY OF PRESENT ILLNESS AND HOSPITAL SUMMARY: Please see the full history and physical by Dr. Liss Laird for full details. Briefly, Ms. Wilson is an 86-year- old female with past medical history as above, who presented to the hospital with one episode of bright red blood per rectum. This occurred after a few days of constipation and after she finally had a large bowel movement. Aside from this, she was asymptomatic. No abdominal pain. No lightheadedness, dizziness, chest pain, or shortness of breath. Patient was evaluated in the emergency department. She was not found to have any external hemorrhoids. She was placed on observation and monitored overnight. Repeat hemoglobin and hematocrit the following day were minimally lower. She had no further episodes of bleeding here in the hospital. Of note, her INR was noted to be supratherapeutic at 3.43. This was held and she was instructed to continue to hold it a second time tonight. The patient checks her INR at home and gets frequent updates from her cardiology office regarding dosing, which she will continue to do. I think the patient's bleed is most likely from an internal hemorrhoid. She had no further bleeding here in the hospital and will be discharged home and follow up with her PCP as an outpatient. TIME SPENT: Total time spent on this discharge, 40 minutes. This is a summary of the hospitalization. Please see the full medical record for further details. [id number]/CPS #: [id number] MTDD
== END 2016-10-14 13:00 | disposition home or self-care (01) ==
LOC: ED 20:41 → MED 23:46
PROVIDERS: ADMIT Pediatrics; ATTEND Hospitalist
DX: K62.5 Hemorrhage of anus and rectum (principal); I48.91 Unspecified atrial fibrillation; Z79.01 Long term (current) use of anticoagulants; I10 Essential (primary) hypertension; K58.9 Irritable bowel syndrome, unspecified; F41.9 Anxiety disorder, unspecified; E03.9 Hypothyroidism, unspecified; M54.9 Dorsalgia, unspecified; M19.90 Unspecified osteoarthritis, unspecified site; G47.33 Obstructive sleep apnea (adult) (pediatric); D50.9 Iron deficiency anemia, unspecified; Z86.711 Personal history of pulmonary embolism
CPT/HCPCS: 36415; 80048; 80053; 81003; 81015; 83605; 83690; 83735; 85025; 85610; 86140; 86850; 86900; 86901; 87077; 87086; 87186; 93005; 99282; A9270-GY; G0378

== ENCOUNTER 2018-07-19 08:27 | Inpatient (IN) | payer MEDICARE ==
--- NOTE | 2018-06-23 06:41 | HP ---
CC: Dr. Rashmi Soler; Dr. Francisco Javier Zacarias * HISTORY AND PHYSICAL: DATE OF ADMISSION: 07/19/18 She will be admitted to [facility] on 07/19/18 for right total hip replacement. Medical is Dr. Antonio Zacarias. Cardiology is Dr. Rashmi Soler. CHIEF COMPLAINT: Right knee pain, swelling, and stiffness, limited walking ability. HISTORY OF PRESENT ILLNESS: This nice 88-year-old woman has had severe arthritis of her right knee for several years and her left hip has also become severely arthritic. Both joints give her pain and crepitations and limit her walking. She has been walking less and less at home. She has been home-bound, but is attended by daughters, who live nearby and a couple of weeks, approximately 10 to 20 days ago, Dr. Zacarias made a home visit. He found her to be in a state where he was interested in her having hip or knee replacement, so that she could become more mobile once again and that led to this office visit and she is interested in proceeding with a right total knee replacement. Today , she was examined with her 2 daughters in attendance. Her movements at home are bed to chair. She does use her walker some around the house and her walking is limited severely by right knee pain and left groin pain. She has had left total knee replacement and a right total hip replacement in the past. Because of the severity of the pain and the limitation of her walking, knee replacement has been recommended. PAST MEDICAL HISTORY: Medical problems include: 1. Hypertension. 2. Depression. 3. Atrial fibrillation. 4. History of pulmonary embolism. 5. Spinal stenosis. 6. Hiatus hernia. 7. GI bleed. 8. She has a pacemaker. There is also history of low blood pressure, right bundle-branch block, shortness of breath, coronary artery disease, and obstructive sleep apnea. MEDICATIONS: Daily meds include: 1. Coumadin 2.5 mg each day. 2. She is also on recently started fentanyl patch 12 mcg per hour to be changed every 72 hours. 3. She uses CBD oil. 4. Metoprolol 50 mg each day. 5. Spironolactone 25 mg each day. 6. Donepezil hydrochloride 5 mg each day. 7. She uses senna for her bowels. 8. VESIcare 10 mg each day. 9. Tylenol 2 tablets 3 times a day. 10. Pantoprazole sodium 40 mg each day. 11. Lasix 40 mg each day. 12. Ferrous sulfate 325 each day. 13. Amlodipine 5 mg each day. 14. Lexapro 5 mg each day. 15. Xanax 1 mg 3 times a day. 16. L-Thyroid 75 mcg each day. 17. Lyrica 75 mg each day. 18. Wellbutrin XL 300 mg each day. ALLERGIES: To SULFA. She has had GI upset from DARVOCET-N 100 and CODEINE. She is listed as allergy to OPIATES. FAMILY HISTORY: Positive for congestive heart failure, stroke, ethanol abuse, Hodgkin's lymphoma. SOCIAL HISTORY: She lives alone. Her daughters are nearby. She walks with a walker. She has been less and less active and more and more home bound in the last year and month. PHYSICAL EXAMINATION GENERAL: She is awake, responsive, oriented x3. VITAL SIGNS: Pulse 80, blood pressure 122/88. HEENT: Head is NC/AT. LUNGS: Clear bilaterally. HEART: Regular today. S1, S2 normal. I do not appreciate murmurs or gallops. ABDOMEN: Soft, nontender. I do not appreciate organomegaly. EXTREMITIES: The patient moves around the examination room with difficulty. She is able to arise from the wheelchair independently pushing off with her hands on the arms and moves around the room by holding on to things. Standing at the exam table and holding on, she can rise on her toes and her heels, left and right and together. She can do a small squat both knees together. Her right knee extension is -4 degrees, flexion is 95 degrees with some stiff feeling. The right knee has tenderness medially and laterally. There is small effusion. The MCL and LCL are stable. Hubert's and posterior drawer are normal. Thigh and calf are soft. There is some leg swelling bilaterally. Today , I did Doppler of both of her feet, the posterior tibial and the dorsalis pedis pulses are present by Doppler, left and right. The patient cannot do leg raise on the left lower extremity and for this effort, most of her discomfort is in her left groin. Her left knee has a well-healed surgical scar. Her left knee is nontender medially, laterally, anteriorly and posteriorly with extension -2 to 3 degrees, flexion 110 degrees and the ligaments are stable. The patient is able to do a leg raise on the right lower extremity. NEUROLOGIC: The cranial nerves are grossly intact. IMAGING: Previous knee x-rays on the right have shown osteopenia and severe arthritis with [id number] right knee medial and lateral compartments. IMPRESSION: The patient has severe right knee arthritis. PLAN: Plan is for right total knee replacement. We discussed the risks and complications with her in my office and she is understanding the risks that she is taking and her daughters are as well. We will plan on clearances with Dr. Zacarias and Dr. Soler. [id number]/[facility] #: [id number] SHEELA
[~2018-07-19 08:27] MED LIST: Acetaminophen TAB* 325 MG PO ONE; Buffered Lidocaine 1% SYRIN* 1 ML/SYRINGE INTRADERM ONE; Dexamethasone IV* 4 MG/ML 1 ML (4 MG) IV SLOW PU ONE; Famotidine TAB* 20 MG PO ONE; Lactated Ringers 1000 ML Bag* 1,000 ML IV SCH; Tranexamic Acid 1,000 MG in NS 0.9% 50 ML* (outpatient use) IV SCH; celeCOXIB CAP* 200 MG PO ONE
[2018-07-19] MEDS ORDERED: Famotidine TAB* 20 MG ONE (09:41)
[2018-07-19] MEDS ORDERED: Acetaminophen TAB* 325 MG ONE (09:41)
[2018-07-19] MEDS ORDERED: Dexamethasone IV* 4 MG/ML 1 ML (4 MG) ONE (09:41)
[2018-07-19] MEDS ORDERED: celeCOXIB CAP* 100 MG ONE (09:41)
[2018-07-19] MEDS ORDERED: ceFAZolin 2 GM PREMIX in ORs 2 GM/50 ML BAG IVPB ONE (09:42)
[2018-07-19 10:00] LABS: INR 1.1 (0.82-1.09)
[2018-07-19] MEDS ORDERED: Midazolam* 1 MG/ML 2 ML VIAL (2 MG) ONE ×2 (10:42→16:19)
[2018-07-19] MEDS ORDERED: Scopolamine 1.5 mg* PATCH ONE (11:16)
[2018-07-19] MEDS: Scopolamine 1.5 mg* PATCH TRANSDERM SCH (11:19)
[2018-07-19] MEDS ORDERED: ROPIVACAINE 5 MG/ML 30 ML BTL (0.5%) ONE (11:22)
[2018-07-19] MEDS ORDERED: Lidocaine 1%* 5 ML VIAL ONE (11:22)
[2018-07-19] MEDS ORDERED: Bupivacaine 0.5% W/EPI SDV* 30 ML VIAL ONE (11:24)
[2018-07-19] MEDS ORDERED: fentaNYL* 50 MCG/ML 2 ML VIAL (100 MCG VIAL) ONE ×2 (12:05→15:19)
[2018-07-19] MEDS ORDERED: Propofol* 10 MG/ML 20 ML BTL ONE ×4 (12:54→14:28)
[2018-07-19] MEDS ORDERED: Naloxone* 0.4 MG/ML 1 ML VIAL IV PRN (14:17)
[2018-07-19] MEDS ORDERED: Ondansetron INJ* 2 MG/ML VIAL IV PRN ×2 (14:17→15:14)
[2018-07-19] MEDS ORDERED: oxyCODONE TAB* 5 MG TAB PO PRN ×3 (14:17→15:32)
[2018-07-19] MEDS ORDERED: Acetaminophen IV 1GM/100ML * 1,000 MG/100 ML VIAL IVPB ONE (14:17)
[2018-07-19] MEDS ORDERED: DiMENhydriNATE IV* 50 MG/ML VIAL IV PUSH PRN (14:17)
[2018-07-19] MEDS ORDERED: Ondansetron ODT TAB* 4 MG PO PRN (15:14)
[2018-07-19] MEDS ORDERED: Docusate CAP* 100 MG PO PRN (15:14)
[2018-07-19] MEDS ORDERED: diPHENhydraMINE PO* 25 MG PO PRN (15:14)
[2018-07-19] MEDS ORDERED: Cyclobenzaprine TAB* 10 MG PO PRN (15:14)
[2018-07-19] MEDS ORDERED: diPHENhydraMINE IV* 50 MG/ML 1 ml VIAL (BENADRYL) IV PRN (15:14)
[2018-07-19] MEDS ORDERED: traMADol TAB* 50 MG PO PRN (15:14)
[2018-07-19] MEDS ORDERED: Morphine 4 MG/ML VIAL (1 ml) 4 MG/ML VIAL IV PRN (15:14)
[2018-07-19] MEDS ORDERED: Magnesium Hydroxide LIQ* 30 ML UDC PO PRN (15:14)
[2018-07-19] MEDS ORDERED: Acetaminophen IV 1GM/100ML * 100 ML ONE (15:19)
[2018-07-19] MEDS: fentaNYL* 50 MCG/ML 2 ML VIAL (100 MCG VIAL) IV PRN ×4 (15:20→16:01)
[2018-07-19] MEDS ORDERED: HYDROmorphone INJ1* 1 MG/ML SYRINGE ONE (15:40)
[2018-07-19] MEDS: HYDROmorphone INJ1* 1 MG/ML SYRINGE IV PRN ×3 (15:40→16:11)
[2018-07-19] MEDS ORDERED: Lactated Ringers 1000 ML Bag* 1,000 ML IV SCH (16:00)
[2018-07-19] MEDS ORDERED: Midazolam* 1 MG/ML 2 ML VIAL (2 MG) IV SLOW PU ONE (16:18)
[2018-07-19] MEDS: Acetaminophen TAB* 325 MG PO SCH ×2 (18:34→23:43)
[2018-07-19] MEDS: Donepezil TAB* 5 MG PO SCH (18:42)
[2018-07-19] MEDS: Warfarin TAB(*) 2.5 MG PO SCH (18:42)
[2018-07-19] MEDS ORDERED: fentaNYL PATCH 25 MCG/HR TRANSDERM SCH (19:00)
[2018-07-19] MEDS: fentaNYL Patch Check Q Shift 1 NOTE SCH (19:05)
--- NOTE | 2018-07-19 20:12 | CONS ---
CC: Dr. Antonio Zacarias * CONSULTATION REPORT: DATE OF CONSULT: 07/19/18 PRIMARY CARE PROVIDER: Dr. Antonio Zacarias. REQUESTING PHYSICIAN IN CONSULT: DARON Davies. ATTENDING PHYSICIAN: Dr. Adeola Talavera (dictated by DARON Espinal). REASON FOR CONSULT: Co-medical management. HISTORY OF PRESENT ILLNESS/HOSPITAL COURSE: I refer you to Dr. Lara's history and physical dictated on 07/19/18 for complete details, but in short, Mrs. Wilson is an 88-year-old female with a past medical history of atrial fibrillation, hypertension, spinal stenosis, hiatal hernia, anxiety and depression, and arthritis who presented to [facility] on 07/19/18 for a right total knee replacement. She has failed conservative therapy in the past. She was seen post-operatively in her room on the surgical floor. She has 3 of her daughters in the room with her. At this time, she is very tired and drifts in and out of sleep, but does wake for conversation. She denies chest pain, shortness of breath, abdominal pain, nausea, vomiting, diarrhea, constipation, pain in the extremities. PAST MEDICAL HISTORY: 1. Atrial fibrillation, PPM, Coumadin. 2. Hypertension. 3. Spinal stenosis. 4. Hypothyroidism. 5. Dementia. 6. Hiatal hernia. 7. Depression. 8. Anxiety. 9. History of GI bleed approximately 2 years ago. 10. History of PE approximately 5 years ago. PAST SURGICAL HISTORY: Gallbladder, tonsils, hysterectomy, left knee, right hip , bladder mesh. HOME MEDICATIONS: 1. Fentanyl patch 12 mcg per hour q.72 hours. 2. Warfarin 2.5 mg Wednesday, Wednesday, Wednesday, Wednesday, Wednesday, Wednesday; 1.5 mg . 3. Spironolactone 25 mg p.o. at 1400. 4. VESIcare 10 mg p.o. q.a.m. 5. Senna 17.2 mg p.o. at bedtime. 6. Pregabalin 75 mg p.o. t.i.d. 7. Pantoprazole 40 mg p.o. q.a.m. 8. Multivitamin/minerals 1 tab p.o. q.a.m. 9. Metoprolol succinate XL 50 mg p.o. at bedtime. 10. Levothyroxine 75 mcg p.o. q.a.m. 11. Iron 65 mg p.o. q.a.m. 12. Furosemide 40 mg p.o. q.a.m. 13. Escitalopram 5 mg p.o. b.i.d. 14. Donepezil HCl 5 mg p.o. q.a.m. 15. Docusate 50 mg p.o. q.a.m. 16. Bupropion XL 300 mg p.o. q.a.m. 17. Acetaminophen 625 mg p.o. t.i.d. 18. Alprazolam 1 mg p.o. at bedtime. ALLERGIES: SULFA, hives; OPIATES, nausea, GI upset. FAMILY HISTORY: Positive for CHF, CVA, Hodgkin's. SOCIAL HISTORY: The patient lives at home alone. She states she has family close by. She typically walks with a walker. In the event that she is unable to make her own medical decisions, she appoints her daughters, Yolanda Ngo and Karen Stover, as her decision makers. REVIEW OF SYSTEMS: A 10-point review of systems was performed and all the pertinent positives and negatives are in the HPI. PHYSICAL EXAM: General: Mrs. Wilson is a pleasant well-developed, well-nourished , obese, elderly white woman who is sitting up in bed. She is postoperative and drifts in and out of sleep, but is able to respond to questioning appropriately. Vital signs are temperature 97.5 temporal, heart rate 69, respiratory rate 13, oxygen saturation 94% on 3 L O2, blood pressure 134/73. HEENT: Pupils are equally round and reactive to light. Hearing is grossly intact. Oral mucous membranes are dry. There appear to be no lesions. Pharynx is clear. Cardiovascular: Regular rate and rhythm with S1, S2 present. There are no murmurs, rubs, or gallops. There is no JVD. Respiratory : Symmetrical chest expansion without use of accessory muscles. Lungs are clear to auscultation bilaterally anteriorly. There are no rhonchi, wheezes, or rales. Abdomen is obese. Bowel sounds noted in all quadrants. The abdomen is soft and nontender to palpation. There is no hepatosplenomegaly. Extremities: Skin is warm and smooth bilaterally. There is no clubbing, cyanosis, or edema. Radial and pedal pulses are palpable. Sensation is intact distally at the bilateral lower extremities. Neuro: The patient is asleep, but wakes easily. She is oriented. She is able to move all of her extremities. ASSESSMENT AND PLAN: Mrs. Wilson is an 88-year-old female with a past medical history as described above who presented to [facility] today for an elective right total knee replacement. The patient will be admitted inpatient for: 1. Right total knee replacement. Management per Ortho. 2. Atrial fibrillation. The patient will remain on her metoprolol with hold parameters. Continue Coumadin with Lovenox bridge, per Ortho. 3. Hypertension. Continue metoprolol and spironolactone. At the current time , we will hold furosemide. We will continue to monitor blood pressure for need to add home medication. 4. Spinal stenosis. The patient is on fentanyl patch for this. 5. Depression, anxiety. Continue bupropion, alprazolam at bedtime, escitalopram. 6. Hypothyroidism. Continue Synthroid. 7. DVT prophylaxis. The patient will be placed on Lovenox to warfarin bridging. 8. Code status. Full code. TIME SPENT: Approximately 30 minutes were spent on this consultation, greater than half that time was spent [id number] with the patient and her family members obtaining history, performing physical, and reviewing the plan of care. DARON LORENZANA [id number]/[facility] #: [id number] SHEELA
--- NOTE | 2018-07-19 20:29 | OP ---
CC: Dr. Antonio Zacarias * DATE OF OPERATION: 07/19/18 - ROOM #339 DATE OF : 32 SURGICAL CARE: Right knee. SURGEON: Mathieu Lara MD. ASSISTANTS: 1. DARON Davies. 2. HELENA Francois. ANESTHESIOLOGIST: Dr. Giblert. ANESTHESIA: A right femoral adductor canal block and spinal anesthetic with IV sedation. PRE-OP DIAGNOSIS: Severe arthritis of the right knee. POST-OP DIAGNOSIS: Severe arthritis of the right knee. OPERATIVE PROCEDURE: Right total knee replacement. IMPLANTS: The Ciaran Persona knee was utilized posterior stabilized type. The femur is a narrow size 6. The patella is a 32. The tibia is a size D with a 10 articular surface. COMPLICATIONS: There were no complications. DRAINS: Two drains, right knee at the end of the case. BLOOD LOSS: 250 mL. REPLACEMENT: Crystalloid fluid. INDICATIONS: Severe arthritis of the right knee. She has had this for several years. There was uncertainty regarding her desire to have a knee replacement and she decided with her medical team, Dr. Zacarias and myself to do the knee replacement. DESCRIPTION OF PROCEDURE: The patient was brought to the operating room and placed on the operating room table in the supine position. Following the administration of spinal anesthetic, she was returned to the supine position. A Hay catheter was inserted. The right foot was noted to have an O2 saturation of 97%, the same as her hands. The right popliteal pulse was noted to be 2+. The right proximal thigh was wrapped with a tourniquet. The right leg was then prepped preliminary with chlorhexidine and then given a formal ChloraPrep. After prepping, draping, and sealing off, we did our universal protocol time-out confirming Javieryany Wilson and the plan for a right total knee replacement. We all agreed and we proceeded. The surgical care was done without tourniquet except in the cleanup and cementing phase of the case. The hip and knee were acutely flexed with the right foot on a padded footpiece. The skin incision went from the medial aspect of the tibial tubercle to 2 fingerbreadths proximal to the superior pole of the patella. The prepatellar bursa was traversed. The knee was entered medial parapatellar. There was clear goldish synovial fluid. On the tibia, the anteromedial soft tissues were elevated subperiosteally going around to the deep MCL and then to the posteromedial corner of the knee. The ACL was divided. The patella was everted. The parapatellar synovectomy was completed including on the infrapatellar fat pad. The lateral meniscus was carefully excised. The medial meniscus was excised. The distal anterior femur was exposed subperiosteally for referencing and measuring. There were osteophytes in the intercondylar. They were removed with an osteotome. The knee had complete eburnation of bone on the medial femoral condyle and the lateral femoral condyle and the medial and lateral tibial plateau. The patella was also very arthritic. The proximal tibial cut was made first. Our goal here was to have a tibial surface that would be perpendicular to the long axis of the tibia and that would have a slight posterior slope removing a few millimeters of bone on the medial side and a centimeter on the lateral side to correct the varus. The intramedullary drill was then used for the femur. The femur was suctioned to discourage embolization and the distal femoral cutting guide was applied with 1 for small flexion contracture and 6 degrees of valgus. This cut was completed. The extension gap was satisfactory at 10. The femur was measured for a size 6. The anterior, posterior, and chamfering cuts were completed, and at this stage after finishing removal of the lateral meniscus, PCL, medial meniscus, carefully preserving the MCL, we had an extension gap at 90 degrees that was good for a 10-mm block. The femur was completed with the intercondylar cutout. The femoral canal was cleaned with saline and suctioned x6, plug inserted. The tibia was then completed for a size D. The knee was articulated and extended with a D tibia, 10 articular surface and the 6 femur with full knee extension, stable ligaments in extension, full knee flexion 135 degrees, and stable ligaments in 90 degrees of flexion. The patella was cut flat. A 32 was chosen. Three drill holes were made, these were undercut. A lateral release was not necessary. The final components were then opened. The leg was exsanguinated, the tourniquet elevated to 275. The knee was cleaned in extension with pulse saline 2 to 2-1/2 L. The knee was cleaned in flexion with retractors in place. All the bony surfaces cleaned with pulse saline and all surfaces were dried. The cement was mixed and the components were cemented into position, patella, followed by tibia, followed by femur. Each was impacted. Excess cement was removed and the knee was articulated and extended during the final hardening. After hardening, the tourniquet was deflated. We checked posteriorly for loose cement fragments and bleeding points. Careful hemostasis was checked and achieved as we closed and irrigation several times with saline as we closed. Two drains were brought out through superolateral suprapatellar pouch to discourage blood collection in the next 18 hours. The quadriceps mechanism closed with interrupted #1 Vicryl sutures in a figure-of- eight fashion, the same with the medial retinaculum, more distally we used 0 Vicryl. On the deep bursa and deep fascia, we used 0 Vicryl and then on the superficial subcu 3-0 Vicryl and shruthi on the skin. The skin was washed and dried and covered with Betadine-soaked release followed by sterile gauze, sterile Webril, cryotherapy cuff, ABD pads, and a 6-inch Avni bandage loosely applied. The patient was returned to the recovery room in stable and satisfactory condition, having tolerated the procedure very well. [id number]/[facility] #: [id number] SHEELA
[2018-07-19] MEDS: ceFAZolin 1 GM ADVAN(*) 1 GM in NS 0.9% 50 ML* 50 ML IVPB SCH (21:21)
[2018-07-19] MEDS: Senna TAB PO SCH (21:35)
[2018-07-19] MEDS: Pregabalin CAP(*) 25 MG PO SCH (21:36)
[2018-07-19] MEDS: Metoprolol Succinate XL TAB* 50 MG PO SCH (21:36)
[2018-07-19] MEDS: ALPRAZolam TAB* 0.5 MG PO PRN (22:32)
[2018-07-20] MEDS: ceFAZolin 1 GM ADVAN(*) 1 GM in NS 0.9% 50 ML* 50 ML IVPB SCH ×2 (04:57→12:09)
[2018-07-20] MEDS: Levothyroxine TAB* 75 MCG TAB PO SCH (04:58)
[2018-07-20 05:41] LABS: Hematocrit 34 % (35-47); Hemoglobin 11.5 g/dL (12.0-16.0); Mean Platelet Volume 8.4 fL (7.4-10.4); Platelet Count 233 10^3/uL (150-450)
[2018-07-20 05:55] LABS: INR 1.15 (0.82-1.09)
[2018-07-20 06:01] LABS: CO2 Carbon Dioxide 28 mmol/L (22-32); Calcium 9.2 mg/dL (8.6-10.3); Chloride 106 mmol/L (101-111); Sodium 140 mmol/L (135-145)
[2018-07-20 06:03] LABS: Anion Gap 6 mmol/L (2-11)
[2018-07-20 06:07] LABS: BUN/Creatinine Ratio 20.2 (8-20); Blood Urea Nitrogen 17 mg/dL (6-24); EGFR African American 77.6 (>60); EGFR Non-African American 64.1 (>60); Glucose 117 mg/dL (70-100)
[2018-07-20] MEDS: fentaNYL Patch Check Q Shift 1 NOTE SCH ×2 (07:20→19:22)
[2018-07-20] MEDS: Acetaminophen TAB* 325 MG PO SCH ×3 (07:58→23:19)
[2018-07-20] MEDS: Warfarin TAB(*) 2.5 MG PO SCH (07:59)
[2018-07-20] MEDS: Pantoprazole TAB * 40 MG TAB PO SCH (08:00)
[2018-07-20] MEDS: Pregabalin CAP(*) 25 MG PO SCH ×3 (08:00→22:19)
[2018-07-20] MEDS: Ferrous Sulfate TAB* 325 MG PO SCH (08:00)
[2018-07-20] MEDS: Escitalopram * 5 MG TAB PO SCH (08:01)
[2018-07-20] MEDS: BuPROPion XL* 300 MG TAB.XL PO SCH (08:01)
--- NOTE | 2018-07-20 08:40 | PN ---
Progress Note - Progress Note Date of Service: 07/20/18 Note: POD #1 VSStable. Confusion during the night and tried to get up. Her daughter stayed the night and helped to care for her. She responds slowly (as usual) and doing some crying but not too distressed appearing. Intake 3170, and Output 1700. H/H 11.5 and 34%. Lytes OK but K not done. She responds and breathing easily. Lifts arms, lifts both legs. Her right leg dressing is dry and 2 drains were removed from her right knee. Moves both ankles and toes actively up and down. X-ray right knee after surgery all satisfactory. Imp: Stable. Acute blood loss anemia. Plans: Up to chair and up with walker, drinking and incentive spirometer.
[2018-07-20] MEDS ORDERED: Furosemide TAB* 40 MG PO SCH (09:00)
[2018-07-20] MEDS: CMC:Solifenacin(NF) 10 MG TAB PO SCH (10:00)
[2018-07-20] MEDS ORDERED: Enoxaparin(*) 30 MG/0.3 ML SYR SUBCUT ONE (12:00)
[2018-07-20] MEDS ORDERED: Bisacodyl SUPP* 10 MG SUPP PR ONE (12:12)
[2018-07-20] MEDS: traMADol TAB* 50 MG PO PRN ×2 (12:13→18:30)
[2018-07-20] MEDS: Spironolactone TAB* 25 MG PO SCH (14:57)
--- NOTE | 2018-07-20 16:33 | PN ---
Subjective Date of Service: 07/20/18 Interval History: VS: WNL, normotensive Lab: post-op anemia Pt denies complaints, including knee pain. She is tearful and tries to relay a story, but stops short of finishing and gets distracted and weeps. Daughter states that patient is "talking crazy." She states she has been asking if her cat, who was put down 3 months ago, is home. She has been restless and weepy since she arrived on floor last night post-operatively. Objective Active Medications: Acetaminophen (Tylenol Tab*) 975 mg PO Q8H [facility] Alprazolam (Xanax Tab*) 1 mg PO BEDTIME PRN Bupropion HCl (Bupropion Xl*) 300 mg PO QAM [facility] Cyclobenzaprine HCl (Flexeril Tab*) 5 mg PO TID PRN Diphenhydramine HCl (Benadryl Iv*) 25 mg IV Q6H PRN Diphenhydramine HCl (Benadryl Po*) 25 mg PO Q6H PRN Docusate Sodium (Colace Cap*) 100 mg PO BID PRN Donepezil HCl (Aricept Tab*) 5 mg PO QPM [facility] Enoxaparin Sodium (Lovenox(*)) 40 mg SUBCUT Q24H [facility] Escitalopram Oxalate (Lexapro *) 10 mg PO DAILY [facility]; Protocol Fentanyl (Duragesic Patch 25 Mcg/Hr*) 25 mcg TRANSDERM Q72H [facility] Ferrous Sulfate (Ferrous Sulfate Tab*) 325 mg PO QAM [facility] Lactated Ringer's (Lactated Ringers 1000 Ml Bag*) 1,000 mls @ 75 mls/hr IV PER RATE [facility] Levothyroxine Sodium (Synthroid Tab*) 75 mcg PO QAM@0600 [facility] Magnesium Hydroxide (Milk Of Magnesia Liq*) 30 ml PO Q6H PRN Metoprolol Succinate (Toprol Xl Tab*) 50 mg PO BEDTIME [facility] Morphine Sulfate (Morphine 4 Mg/Ml Vial (1 Ml)) 1 mg IV Q2H PRN Ondansetron HCl (Zofran Inj*) 4 mg IV Q6H PRN Ondansetron HCl (Zofran Odt Tab*) 4 mg PO Q6H PRN Oxycodone HCl (Roxycodone Tab*) 2.5 mg PO Q4H PRN Pantoprazole Sodium (Protonix Tab*) 40 mg PO QAM [facility] Pharmacy Profile Note (Fentanyl Patch Check Q Shift) 1 note N/A 0700,1900 [facility] Pharmacy Profile Note (Scopolamine Patch Remove*) 1 note PATCH OFF Q72H [facility] Pregabalin (Lyrica Cap(*)) 75 mg PO TID [facility] Scopolamine (Transderm-Scop 1.5 Mg Patch*) 1 patch TRANSDERM Q72H [facility] Senna (Senokot Tab*) 2 tab PO BEDTIME [facility] Solifenacin (Vesicare(Nf)) 10 mg PO QAM [facility] Spironolactone (Aldactone Tab*) 25 mg PO 1400 [facility] Tramadol HCl (Ultram*) 50 mg PO Q6H PRN Tramadol HCl (Ultram*) 25 mg PO Q6H PRN Warfarin Sodium (Coumadin Tab(*)) 2.5 mg PO DAILY [facility]; Protocol Vital Signs: Temp Pulse Resp BP Pulse Ox 98.4 F 63 18 109/38 93 07/20/18 16:03 07/20/18 16:03 07/20/18 16:03 07/20/18 16:03 07/20/18 16:03 Oxygen Devices in Use Now: None Appearance: Pt is laying in bed sleeping. She is asleep, wakes easily. She is weepy, but is in no distress. Ears/Nose/Mouth/Throat: Clear Oropharnyx, Mucous Membranes Moist Neck: NL Appearance and Movements; NL JVP, Trachea Midline Respiratory: Symmetrical Chest Expansion and Respiratory Effort, Clear to Auscultation Cardiovascular: NL Sounds; No Murmurs; No JVD, RRR, No Edema Abdominal: NL Sounds; No Tenderness; No Distention, No Hepatosplenomegaly Extremities: No Edema - Alert. Oriented to self. , No Clubbing, Cyanosis Result Diagrams: 07/20/18 05:30 07/20/18 09:35 Assess/Plan/Problems-Billing Assessment: 88yof PMHx AF, HTN, spinl stenosis, hiatal hernia, depression, h/o PE who presents for elective RTKA. - Patient Problems (1) Status post right knee replacement Comment: -Management per ortho (2) Confusion Comment: -Likely this is multifactorial: post-operative, reduction of benzodiazepam, increase in opiates -Will reduce opiates; pt has fentanyl patch in place -Will decrease pregabalin -Low threshold for UA for UTI- pt has h/o UTIs; finished treatment Wednesday for one -Will continue to monitor (3) Hypertension Comment: -WNL -Continue metoprolol, spironolactone -Continue to hold lasix (4) Atrial fibrillation Comment: -Tele: intermittent pacing, 1-degree HB -Continue metoprolol, Coumadin-Lovenox (5) DVT prophylaxis Comment: -Per surgery: Coumadin-Lovenox (6) Full code status Status and Disposition: Inpatient. Discharge per ortho.
[2018-07-20] MEDS: Donepezil TAB* 5 MG PO SCH (18:32)
[2018-07-20] MEDS: ALPRAZolam TAB* 0.5 MG PO PRN (22:15)
[2018-07-20] MEDS: Metoprolol Succinate XL TAB* 50 MG PO SCH (22:18)
[2018-07-20] MEDS: Senna TAB PO SCH (22:19)
[2018-07-21] MEDS: Levothyroxine TAB* 75 MCG TAB PO SCH (05:11)
[2018-07-21] MEDS: fentaNYL Patch Check Q Shift 1 NOTE SCH ×2 (07:03→19:01)
[2018-07-21] MEDS: Acetaminophen TAB* 325 MG PO SCH ×3 (08:22→21:24)
[2018-07-21] MEDS: Pregabalin CAP(*) 25 MG PO SCH ×3 (08:23→21:24)
[2018-07-21] MEDS: BuPROPion XL* 300 MG TAB.XL PO SCH (08:23)
[2018-07-21 08:24] LABS: Hematocrit 35 % (35-47); Hemoglobin 11.3 g/dL (12.0-16.0); Mean Platelet Volume 8.4 fL (7.4-10.4); Platelet Count 270 10^3/uL (150-450)
[2018-07-21] MEDS: Pantoprazole TAB * 40 MG TAB PO SCH (08:24)
[2018-07-21] MEDS: CMC:Solifenacin(NF) 10 MG TAB PO SCH (08:24)
[2018-07-21] MEDS: Ferrous Sulfate TAB* 325 MG PO SCH (08:24)
[2018-07-21] MEDS: Escitalopram * 5 MG TAB PO SCH (08:24)
[2018-07-21] MEDS: Warfarin TAB(*) 2.5 MG PO SCH (08:25)
[2018-07-21 08:30] LABS: INR 1.24 (0.82-1.09)
[2018-07-21 08:43] LABS: BUN/Creatinine Ratio 24.7 (8-20); Calcium 9.7 mg/dL (8.6-10.3); EGFR African American 80.9 (>60); EGFR Non-African American 66.9 (>60); Potassium 3.8 mmol/L (3.5-5.0)
--- NOTE | 2018-07-21 09:42 | PN ---
Progress Note - Progress Note Date of Service: 07/21/18 SOAP: Subjective: []Pt seen at bedside. She feels well though remains confused. Her daughter is at bedside. Denies CP, SOB, dizziness, nausea. Knee pain is well controlled. Objective: [] General: Appears well, NAD RLE: Right knee dressing changed, washed with soap and water and re-dressed with betadine, 4x4s and maurisio. Thigh is soft, DF/PF intact, sensation intact to light touch distally, cap refill less than two seconds distally Calves supple and nontender without erythema, edema or palpable cords Assessment: []POD 2 SP rtk Plan: []wbat pt/ot WARFARIN 2.5 MG daily, home dosing. Bridge with [facility] Nursing did confirm dopplar pedal pulses last night DC rehab expect tomorrow sen view vs deep swing Limit narcotic use, control pain with tylenol as much as able Vital Signs 07/20/18 07/20/18 07/20/18 11:29 12:13 15:07 Temperature 97.4 F Pulse Rate 64 Respiratory 16 18 18 Rate Blood Pressure 111/42 (mmHg) O2 Sat by Pulse 93 Oximetry 07/20/18 07/20/18 07/20/18 16:00 16:03 18:30 Temperature 98.4 F Pulse Rate 63 Respiratory 18 18 Rate Blood Pressure 109/38 (mmHg) O2 Sat by Pulse 93 93 Oximetry 07/20/18 07/20/18 07/20/18 19:40 22:15 22:19 Temperature Pulse Rate Respiratory 16 16 16 Rate Blood Pressure (mmHg) O2 Sat by Pulse Oximetry 07/20/18 07/21/18 07/21/18 23:42 03:31 04:26 Temperature 98.0 F Pulse Rate 61 Respiratory 16 20 Rate Blood Pressure 137/59 (mmHg) O2 Sat by Pulse 89 933 Oximetry 07/21/18 08:23 Temperature Pulse Rate Respiratory 18 Rate Blood Pressure (mmHg) O2 Sat by Pulse Oximetry Laboratory Last Values Hgb 11.3 g/dL (12.0-16.0) L 07/21/18 08:06 Hct 35 % (35-47) 07/21/18 08:06 Plt Count 270 10^3/uL (150-450) 07/21/18 08:06 MPV 8.4 fL (7.4-10.4) 07/21/18 08:06 INR (Anticoag Therapy) 1.24 (0.82-1.09) H 07/21/18 08:06 Sodium 142 mmol/L (135-145) 07/21/18 08:06 Potassium 3.8 mmol/L (3.5-5.0) 07/21/18 08:06 Chloride 104 mmol/L (101-111) 07/21/18 08:06 Carbon Dioxide 33 mmol/L (22-32) H 07/21/18 08:06 Anion Gap 5 mmol/L (2-11) 07/21/18 08:06 BUN 20 mg/dL (6-24) 07/21/18 08:06 Creatinine 0.81 mg/dL (0.51-0.95) 07/21/18 08:06 Est GFR ( Amer) 80.9 (>60) 07/21/18 08:06 Est GFR (Non-Af Amer) 66.9 (>60) 07/21/18 08:06 BUN/Creatinine Ratio 24.7 (8-20) H 07/21/18 08:06 Glucose 91 mg/dL (70-100) 07/21/18 08:06 Calcium 9.7 mg/dL (8.6-10.3) 07/21/18 08:06
[2018-07-21] MEDS: Enoxaparin(*) 30 MG/0.3 ML SYR SUBCUT SCH ×2 (10:49→21:26)
[2018-07-21] MEDS ORDERED: Enoxaparin(*) 40 MG/0.4 ML SYR SUBCUT SCH (12:00)
--- NOTE | 2018-07-21 12:04 | PN ---
Subjective Date of Service: 07/21/18 Interval History: VS: WNL Labs: post-op anemia- stable Pt states that she is feeling better today. She still has some R knee pain, but is progressing well. She realizes that she has had some confusion and delirium post-operatively, and states that she had a bad, "scary" night. She is feeling much better today. She denies CP, fever, cough, SOB, abd pain, n/v/d /c, pain in calves. She admits to some calf cramping at times, but none since admission. Objective Active Medications: Acetaminophen (Tylenol Tab*) 975 mg PO Q8H [facility] Alprazolam (Xanax Tab*) 1 mg PO BEDTIME PRN Bupropion HCl (Bupropion Xl*) 300 mg PO QAM [facility] Cyclobenzaprine HCl (Flexeril Tab*) 5 mg PO TID PRN Diphenhydramine HCl (Benadryl Iv*) 25 mg IV Q6H PRN Diphenhydramine HCl (Benadryl Po*) 25 mg PO Q6H PRN Docusate Sodium (Colace Cap*) 100 mg PO BID PRN Donepezil HCl (Aricept Tab*) 5 mg PO QPM [facility] Enoxaparin Sodium (Lovenox(*)) 30 mg SUBCUT Q12H [facility] Escitalopram Oxalate (Lexapro *) 10 mg PO DAILY [facility]; Protocol Fentanyl (Duragesic Patch 25 Mcg/Hr*) 25 mcg TRANSDERM Q72H [facility] Ferrous Sulfate (Ferrous Sulfate Tab*) 325 mg PO QAM [facility] Lactated Ringer's (Lactated Ringers 1000 Ml Bag*) 1,000 mls @ 75 mls/hr IV PER RATE [facility] Levothyroxine Sodium (Synthroid Tab*) 75 mcg PO QAM@0600 [facility] Magnesium Hydroxide (Milk Of Magnesia Liq*) 30 ml PO Q6H PRN Metoprolol Succinate (Toprol Xl Tab*) 50 mg PO BEDTIME [facility] Ondansetron HCl (Zofran Inj*) 4 mg IV Q6H PRN Ondansetron HCl (Zofran Odt Tab*) 4 mg PO Q6H PRN Oxycodone HCl (Roxycodone Tab*) 2.5 mg PO Q4H PRN Pantoprazole Sodium (Protonix Tab*) 40 mg PO QAM [facility] Pharmacy Profile Note (Fentanyl Patch Check Q Shift) 1 note N/A 0700,1900 [facility] Pharmacy Profile Note (Scopolamine Patch Remove*) 1 note PATCH OFF Q72H [facility] Pregabalin (Lyrica Cap(*)) 50 mg PO TID [facility] Scopolamine (Transderm-Scop 1.5 Mg Patch*) 1 patch TRANSDERM Q72H [facility] Senna (Senokot Tab*) 2 tab PO BEDTIME [facility] Solifenacin (Vesicare(Nf)) 10 mg PO QAM [facility] Spironolactone (Aldactone Tab*) 25 mg PO 1400 [facility] Tramadol HCl (Ultram*) 25 mg PO Q6H PRN Warfarin Sodium (Coumadin Tab(*)) 2.5 mg PO DAILY [facility]; Protocol Vital Signs: Temp Pulse Resp BP Pulse Ox 98.0 F 66 18 139/65 97 07/20/18 23:42 07/21/18 08:00 07/21/18 10:10 07/21/18 08:00 07/21/18 08:00 Oxygen Devices in Use Now: None Appearance: Pt is laying in bed sleeping with HOB and LE elevated. She wakes easily and engages in conversation. She is in no acute distress. Eyes: No Scleral Icterus, PERRLA Ears/Nose/Mouth/Throat: NL Teeth, Lips, Gums, Clear Oropharnyx, Mucous Membranes Moist Neck: NL Appearance and Movements; NL JVP, Trachea Midline Respiratory: Symmetrical Chest Expansion and Respiratory Effort, Clear to Auscultation Cardiovascular: NL Sounds; No Murmurs; No JVD, RRR Abdominal: NL Sounds; No Tenderness; No Distention, No Hepatosplenomegaly Extremities: No Clubbing, Cyanosis, - - L knee with CDI dsg, cry unit in place. Trace LLE edema. Sensation, distal pulses intact. Neurological: Alert and Oriented x 3, NL Sensation Result Diagrams: 07/21/18 08:06 07/21/18 08:06 Assess/Plan/Problems-Billing Assessment: 88yof PMHx AF, HTN, spinl stenosis, hiatal hernia, depression, h/o PE who presents for elective RTKA. - Patient Problems (1) Status post right knee replacement Comment: -Management per ortho (2) Confusion Comment: -Improved since yesterday -Likely this is multifactorial: post-operative, reduction of benzodiazepam, increase in opiates -Will reduce opiates; pt has fentanyl patch in place -Will decrease pregabalin -Low threshold for UA for UTI- pt has h/o UTIs; finished treatment Wednesday for one -Will continue to monitor (3) Hypertension Comment: -WNL -Continue metoprolol, spironolactone -Continue to hold lasix (4) Atrial fibrillation Comment: -Tele: intermittent pacing, 1-degree HB -Continue metoprolol, Coumadin-Lovenox (5) DVT prophylaxis Comment: -Per surgery: Coumadin-Lovenox -Lovenox increased to 30 BID (6) Full code status Status and Disposition: Inpatient. Discharge per ortho.
[2018-07-21] MEDS: Spironolactone TAB* 25 MG PO SCH (14:33)
[2018-07-21] MEDS: Donepezil TAB* 5 MG PO SCH (18:03)
[2018-07-21] MEDS: ALPRAZolam TAB* 0.5 MG PO PRN (18:43)
[2018-07-21] MEDS: Senna TAB PO SCH (21:02)
[2018-07-21] MEDS: Metoprolol Succinate XL TAB* 50 MG PO SCH (21:02)
[2018-07-22] MEDS: Levothyroxine TAB* 75 MCG TAB PO SCH (06:11)
[2018-07-22 06:12] LABS: Hematocrit 32 % (35-47); Hemoglobin 10.9 g/dL (12.0-16.0); Mean Platelet Volume 8.3 fL (7.4-10.4); Platelet Count 270 10^3/uL (150-450)
[2018-07-22 06:20] LABS: INR 1.3 (0.82-1.09)
[2018-07-22] MEDS: fentaNYL Patch Check Q Shift 1 NOTE SCH (06:48)
[2018-07-22] MEDS: Acetaminophen TAB* 325 MG PO SCH (07:48)
[2018-07-22] MEDS: BuPROPion XL* 300 MG TAB.XL PO SCH (07:49)
[2018-07-22] MEDS: Pregabalin CAP(*) 25 MG PO SCH (07:49)
[2018-07-22] MEDS: Pantoprazole TAB * 40 MG TAB PO SCH (07:49)
[2018-07-22] MEDS: Escitalopram * 5 MG TAB PO SCH (07:49)
[2018-07-22] MEDS: CMC:Solifenacin(NF) 10 MG TAB PO SCH (07:49)
[2018-07-22] MEDS: Ferrous Sulfate TAB* 325 MG PO SCH (07:49)
--- NOTE | 2018-07-22 08:37 | PN ---
Progress Note - Progress Note Date of Service: 07/22/18 Note: POD #3 VSStable. Hct 32%. T 98.4. Family has been in attendance. The patient has had periods of orientation but also confusion and teary. Sitting up in bed this AM having breakfast and not distressed. Breathing easily. Dressing right leg is clean and dry. She did exercises for me and can almost leg raise right and left. Both ankles and toes are moving up and down actively. Her INR is 1.3. Coumadin has been restarted. She is on a careful lovenox bridge for bleeding concerns as her coumadin takes effect. Plans: To [facility] when accepted. Continue OOB chair and total knee rehab emphasizing right knee extension, flexion and walker ambulation WBAT right.
[2018-07-22] MEDS ORDERED: ALPRAZolam TAB* 0.5 MG PO PRN (09:00)
[2018-07-22] MEDS ORDERED: fentaNYL PATCH 12 MCG/HR TRANSDERM SCH (09:00)
[2018-07-22] MEDS: Enoxaparin(*) 30 MG/0.3 ML SYR SUBCUT SCH (10:46)
[2018-07-22] MEDS ORDERED: Scopolamine PATCH Remove* 1 NOTE MISC PATCH OFF SCH (11:00)
--- NOTE | 2018-07-22 11:19 | DS ---
Orthopedic Discharge Summary - Discharge Summary Date of Admission:07/19/18 Date of Discharge: 07/22/18 Date of Surgery: 07/19/18 Attending Orthopedic Provider: Mathieu Lara MD Pre-operative Diagnosis: Right knee osteoarthritis Operative Procedure: Right total knee replacement Disposition of Patient: [facility] Condition of Patient: Stable History: TEREZA ULRICH is a 88 year old F with years of increasingly severe right knee pain. Patient has failed conservative management and has elected to undergo a right total knee replacement Hospital Course: TEREZA was admitted to [facility] on 07/19/18. Patient underwent a right total knee arthroplasty without complication followed by a brief recovery in PACU and transfer to the Short Stay Surgical Unit in stable condition. Our hospitalist service, physical therapy and occupational therapy also participated in this patients care. Post-op day 1: patient was alert and in no acute distress. Dressing was clean, dry and intact. Operative extremity dorsiflexion and plantarflexion intact, sensation intact to light touch distally, DP2+. Post-op day two: dressing was changed, incision was clean , dry and intact. Post op day 3: Patient was deemed to be medically and orthopedically stable for discharge. Physical therapy will continue at rehab. Home Medications Medication Instructions Recorded Confirmed Type ALPRAZolam TAB* [Xanax TAB*] 1 mg PO BEDTIME PRN 08/20/14 07/19/18 History Acetaminophen TAB* [Tylenol TAB*] 650 mg PO TID 08/20/14 07/19/18 History BuPROPion XL* [Bupropion XL*] 300 mg PO QAM 08/20/14 07/19/18 History Escitalopram * [Lexapro 5 mg (NF)] 5 mg PO BID 08/20/14 07/19/18 History Metoprolol Succinate XL TAB* 50 mg PO BEDTIME 08/20/14 07/19/18 History [Toprol XL TAB*] Levothyroxine TAB* [Synthroid 75 75 mcg PO QAM 07/26/15 07/19/18 History MCG TAB*] Multivitamins/Minerals TAB* [Thera 1 tab PO QAM 07/26/15 07/19/18 History M Plus TAB*] Pantoprazole TAB * [Protonix TAB*] 40 mg PO QAM 10/22/15 07/19/18 History Pregabalin CAP(*) [Lyrica CAP(*)] 75 mg PO TID 10/22/15 07/19/18 History Warfarin TAB(*) [Coumadin TAB(*)] 2.5 mg PO SEE INSTRUCTIONS 10/22/15 07/19/18 History Senna TAB* [Senokot TAB*] 2 tab PO BEDTIME 10/13/16 07/19/18 History Spironolactone [Aldactone 25 MG-] 25 mg PO 1400 10/13/16 07/19/18 History Docusate CAP* [Colace Cap*] 50 mg PO QAM 07/08/18 07/19/18 History Donepezil HCl [Aricept] 5 mg PO QPM 07/08/18 07/19/18 History Iron 65 mg PO QAM 07/08/18 07/19/18 History Solifenacin(NF) [Vesicare(NF)] 10 mg PO QAM 07/08/18 07/19/18 History fentaNYL PATCH 12 MCG/HR * 12 mcg PATCH OFF Q72HR 07/08/18 07/19/18 History [Duragesic Patch 12 Mcg/Hr *] Furosemide TAB* [Lasix TAB*] 40 mg PO QAM 07/18/18 07/19/18 History Docusate CAP* [Colace Cap*] 100 mg PO BID PRN cap 07/22/18 Rx Enoxaparin(*) [Lovenox(*)] 30 mg SUBCUT Q12H syringe 07/22/18 Rx oxyCODONE TAB* [Roxycodone TAB 5 2.5 mg PO Q4H PRN tab 07/22/18 Rx mg*] DISCHARGE INSTRUCTIONS: Weight Bearing as tolerated Wound Care: OK to shower on post-op day 3, no bathing/ swimming/ submerging wound. Use gentle soap, pat dry. Cover with gauze, CAIO wrap or tape. Call Orthopedic office for increased drainage, redness, increased pain, or fever. Go to ER with shortness of breath or chest pain. Diet: Regular diet, increase fluids and fiber to prevent constipation. Continue to use stool softeners, call office if no bowel motion within 48 hours. DVT Prophylaxis: - Coumadin Dosing: resume home dose of 2.5 mg daily - Lovenox 30mg subcutaneous twice daily until INR is therapeutic (1.3 on 07/22/18 ) - Pain control with: Oxycodone 2.5 mg every 4-6 hours asneeded - Antibiotics required prior to any dental work. Staple removal at 14 days, maia elkins up with Dr. Lara in 6 weeks, call for appointment Please call our office with any questions or concerns ([phone])
[2018-07-22 11:40] VITALS: BP 130/61
[2018-07-22] MEDS: Scopolamine 1.5 mg* PATCH TRANSDERM SCH (13:01)
[2018-07-22] MEDS ORDERED: Warfarin TAB(*) 2.5 MG PO SCH (17:00)
== END 2018-07-22 13:50 | disposition swing bed (61) | DRG 470 ==
LOC: AA 08:27 → SSU 17:37
PROVIDERS: ADMIT Orthopaedic Surgery; ATTEND Orthopaedic Surgery
PROC: 0SRC0J9 Replacement of Right Knee Joint with Synthetic Substitute, Cemented, Open Approach (ICD-10-PCS; principal; 2018-07-19 10:30)
DX: M17.11 Unilateral primary osteoarthritis, right knee (principal); D62 Acute posthemorrhagic anemia; I10 Essential (primary) hypertension; F32.9 Major depressive disorder, single episode, unspecified; I48.91 Unspecified atrial fibrillation; M48.00 Spinal stenosis, site unspecified; K44.9 Diaphragmatic hernia without obstruction or gangrene; I45.10 Unspecified right bundle-branch block; G47.33 Obstructive sleep apnea (adult) (pediatric); I25.10 Atherosclerotic heart disease of native coronary artery without angina pectoris; M25.461 Effusion, right knee; F41.9 Anxiety disorder, unspecified; F03.90 Unspecified dementia, unspecified severity, without behavioral disturbance, psychotic disturbance, mood disturbance, and anxiety; K21.9 Gastro-esophageal reflux disease without esophagitis; K58.9 Irritable bowel syndrome, unspecified; E03.9 Hypothyroidism, unspecified; Z96.641 Presence of right artificial hip joint; Z90.710 Acquired absence of both cervix and uterus; Z90.49 Acquired absence of other specified parts of digestive tract; Z88.8 Allergy status to other drugs, medicaments and biological substances; Z88.2 Allergy status to sulfonamides; Z86.711 Personal history of pulmonary embolism; Z79.01 Long term (current) use of anticoagulants; Z95.0 Presence of cardiac pacemaker; Z88.5 Allergy status to narcotic agent; Z82.49 Family history of ischemic heart disease and other diseases of the circulatory system; Z81.1 Family history of alcohol abuse and dependence; Z87.440 Personal history of urinary (tract) infections; Z82.3 Family history of stroke; Z80.7 Family history of other malignant neoplasms of lymphoid, hematopoietic and related tissues; Z98.42 Cataract extraction status, left eye; Z98.41 Cataract extraction status, right eye; R41.0 Disorientation, unspecified
CPT/HCPCS: 36415; 72170; 73565; 80048; 84132; 85014; 85018; 85049; 85610; 88305; 88311; A9270-GY; C1776; G8978-GP-CK; G8979-GP-CI; G8987-GO-CM; G8988-GO-CJ; J0690; J1100; J1170; J1200; J1650; J2250; J2270; J2704; J2795; J3010